=== PATIENT | female | born 1955 | race African-American/Black ===

== ENCOUNTER 2023-08-02 09:51 | Outpatient (AMB) | payer MEDICARE, OTHER, SELFPAY ==
--- NOTE | 2023-08-02 10:23 | HO.NEPHOV_ITS ---
HPI HPI Comments History of Present Illness Details I had the pleasure of seeing Samantha in follow-up of her chronic kidney disease. She has rheumatoid arthritis and takes prednisone and nonsteroidal anti-inflammatories intermittently. She is hypertensive but her blood pressure has been at goal. She has no orthostatic symptoms. When she was taking gabapentin, oxycodone and other NSAID's, she was having tremors which improved on cutting back on gabapentin. Lately she has been taking a lot of nonsteroidal anti-inflammatories. Her serum creatinine has gone up from baseline. She has a new diagnosis of pulmonary fibrosis. She denies chest pain, shortness of b reath, proximal nocturnal dyspnea, orthopnea, pedal edema or urinary symptoms. She takes torsemide, triamterene and hydrochlorothiazide combination as well. [facility] Medical History (Updated 08/02/23 @ 13:45 by Michael Jackson MD) SLE glomerulonephritis syndrome Osteoporosis Postherpetic neuralgia Osteoarthritis Obstructive sleep apnea Mood disorder Hyperlipidemia Migraine variant with headache Mass of left breast on mammogram Lumbar radiculopathy Hyperglycemia GERD (gastroesophageal reflux disease) Essential (primary) hypertension Chronic kidney disease Chronic constipation Cardiac murmur Bacterial pneumonia Surgical History (Updated 08/02/23 @ 10:36 by Anita Serrano MA) History of hysterectomy History of shoulder surgery Family History (Updated 08/02/23 @ 10:37 by Anita Serrano MA) Father Hypertension Social History (Updated 08/02/23 @ 10:37 by Anita Serrano MA) Alcohol intake: never Patient Tobacco Use Status: Never used Tobacco Vital Signs 08/02/23 10:25 Height 5 ft 1 in Weight 184 lb BMI 34.8 BP 110/80 Blood Pressure Location Lt brachial Position Sitting Pulse 77 Pulse Source Pulse Oximeter Physical Exam Vital Signs: Last Vital Signs Pulse 77 08/02/23 10:25 BP 110/80 08/02/23 10:25 BMI result Body Mass Index 34.8 Const Other: Rheumatoid deformities in small joints of her hands General: comfortable and no acute distress Orientation/consciousness: patient oriented x3 HEENT Head: Yes normocephalic Mouth: Normal oral and palatal mucosa present Eyes EOM: EOMs intact bilaterally Neck Neck: Yes supple Resp Auscultation: clear to auscultation bilaterally Cardio Jugular venous distension: no JVD Rate: regular rate GI Palpation (GI): Soft to palpation Auscultation: normal bowel sounds General: Yes no CVA tenderness Back/Spine/Pelvis Back: no CVA tenderness Skin General skin exam: no rashes or lesions noted Neuro General: patient oriented x3 and moves all extremities Extrem General: Yes no pedal edema Assessment & Plan Assessment & Plan (1) CKD (chronic kidney disease) stage 3, GFR 30-59 ml/min: Code(s): N18.30 - Chronic kidney disease, stage 3 unspecified (2) GRIS (acute kidney injury): Code(s): N17.9 - Acute kidney failure, unspecified (3) Hypertension: Code(s): I10 - Essential (primary) hypertension Qualifiers: Hypertension type: primary hypertension Qualified Code(s): I10 - Essen tial (primary) hypertension Plan Samantha has longstanding CKD stage 3 at baseline. She developed GRIS recently most likely due to altered autoregulation of the kidney, being on nonsteroidal anti- inflammatory medications along with ACEI and diuretics. I asked her to hold her lisinopril. She should maintain good hydration. She should cut back sodium in the diet. Her urine output is good. She is clinically not hypervolemic. I have ordered follow-up laboratory studies. She does not need any renal biopsy at this moment in time. Further management is pending involving data. All questions answered. Time spent for retrieval of data, documentation patient encounter 26 minutes. Follow-up given. Orders: Orders Calcium Today N18.30 - Chronic kidney disease, stage 3 unspecified Protein Creatinine Ratio, Ur Today N18.30 - Chronic kidney disease, stage 3 unspecified Complement C3 Today N18.30 - Chronic kidney disease, stage 3 unspecified Complement C4 Today N18.30 - Chronic kidney disease, stage 3 unspecified Electrolytes Today N18.30 - Chronic kidney disease, stage 3 unspecified Blood Urea Nitrogen Today N18.30 - Chronic kidney disease, stage 3 unspecified Creatinine Today N18.30 - Chronic kidney disease, stage 3 unspecified Complete Blood Count Auto Diff Today N18.30 - Chronic kidney disease, stage 3 unspecified Coding Level of Care Code Est Pt Level 4 (36210) Diagnoses CKD (chronic kidney disease) stage 3, GFR 30-59 ml/min N18.30 GRIS (acute kidney injury) N17.9 Primary hypertension I10 Hypertension type: primary hypertension
[2023-08-02 10:25] VITALS: BP 110/80; PULSE 77; BMI 34.8
== END 2023-08-02 11:01 | disposition home or self-care (01) ==
PROVIDERS: PCP Hospitalist; Visit Provider Internal Medicine Nephrology
DX: N18.30 Chronic kidney disease, stage 3 unspecified (principal); N17.9 Acute kidney failure, unspecified; I10 Essential (primary) hypertension
CPT/HCPCS: 99214

== ENCOUNTER → 2023-08-02 09:51 | Outpatient (BNVA) | payer MEDICARE, OTHER, SELFPAY | PROVIDERS: PCP Hospitalist; Visit Provider Internal Medicine Nephrology | DX: I12.9 Hypertensive chronic kidney disease with stage 1 through stage 4 chronic kidney disease, or unspecified chronic kidney disease (principal); N18.30 Chronic kidney disease, stage 3 unspecified; N17.9 Acute kidney failure, unspecified | CPT/HCPCS: 99212 ==

== ENCOUNTER 2023-11-24 13:09 | Outpatient (REF) | payer MEDICARE, OTHER, SELFPAY ==
[2023-11-24 17:24] LABS: MANUAL DIFF FLAG NO
[2023-11-24 17:29] LABS: Basophils Absolute Auto 0.1 X10*3/uL (0.0-0.2); Basophils Percent Auto 0.7 % (0-2); Eosinophils Absolute Auto 0.8 X10*3/uL (0.0-0.4); Eosinophils Percent Auto 7.4 % (0-4); Hematocrit 32.7 % (37.0-47.0); Hemoglobin 10.7 g/dl (12.0-16.0); Imm Gran Abs Auto 0.02 X10*3/uL (0.00-0.03); Imm Gran Pct Auto 0.2 % (0.0-0.4); Lymphocytes Absolute Auto 2.4 X10*3/uL (1.2-4.9); Lymphocytes Percent Auto 22.9 % (20-40); Mean Corpuscular HGB Conc 32.7 g/dl (31.0-35.0); Mean Corpuscular Hemoglobin 30.1 pg (27.0-33.0); Mean Corpuscular Volume 92.1 fL (80.0-98.0); Mean Platelet Volume 9.1 fL (9.4-12.3); Monocytes Absolute Auto 1.3 X10*3/uL (0.1-1.2); Monocytes Percent Auto 11.9 % (2-11); Neutrophils Percent Auto 56.9 % (45-73); Platelet Count 519 X10*3/uL (160-400); Red Blood Count 3.55 X10*6/uL (4.20-5.50); Red Cell Distribution Width 15.5 % (11.0-16.0); White Blood Count 10.5 X10*3/uL (4.8-10.8)
[2023-11-24 17:38] LABS: Anion Gap 13 (12-20); Blood Urea Nitrogen 25 mg/dL (9-16); Calcium 10.3 mg/dL (8.4-10.2); Carbon Dioxide 27 mmol/L (22-29); Chloride 104 mmol/L (96-108); Estimated Glomerular Filt Rate 36; Potassium 3.3 mmol/L (3.3-5.1); Sodium 141 mmol/L (135-145)
[2023-11-24 17:50] LABS: Creatinine Urine 119.12 mg/dL; Protein/Creatinine Ratio, Ur 0.08 (<0.2); Total Protein Urine Random 10 mg/dL (<12)
== END 2023-11-24 13:10 | disposition home or self-care (01) ==
LOC: HO.HKASLDS 13:09
PROVIDERS: Visit Provider Internal Medicine Nephrology
DX: N18.30 Chronic kidney disease, stage 3 unspecified (principal)
CPT/HCPCS: 36415; 80051; 82310; 82565; 82570; 84156; 84520; 85025; 86160

== ENCOUNTER 2023-12-01 09:40 | Outpatient (AMB) | payer MEDICARE, OTHER, SELFPAY ==
[2023-12-01 09:43] VITALS: BP 120/80; PULSE 94; O2SAT 95; BMI 29.9
--- NOTE | 2023-12-01 09:43 | HO.NEPHOV ---
HPI HPI Comments History of Present Illness Details I had the pleasure of seeing Samantha in follow-up of her chronic kidney disease. She has rheumatoid arthritis and takes prednisone and nonsteroidal anti-inflammatories intermittently. She is hypertensive but her blood pressure has been at goal. She has no orthostatic symptoms. When she was taking gabapentin, oxycodone and other NSAID's, she was having tremors which improved on cutting back on gabapentin. Lately she has been taking a lot of nonsteroidal anti-inflammatories. Her serum creatinine has improved and is close to baseline ( from 2.5 to 1.4 ). She has a new diagnosis of pulmonary fibrosis. She denies chest pain, shortness of breath, proximal nocturnal dyspnea, orthopnea, pedal edema or urinary symptoms. She takes torsemide, triamterene and hydrochlorothiazide combination as well. [facility] Medical History (Updated 12/01/23 @ 09:53 by Michael Jackson MD) SLE glomerulonephritis syndrome Osteoporosis Postherpetic neuralgia Osteoarthritis Obstructive sleep apnea Mood disorder Hyperlipidemia Migraine variant with headache Mass of left breast on mammogram Lumbar radiculopathy Hyperglycemia GERD (gastroesophageal reflux disease) Essential (primary) hypertension Chronic kidney disease Chronic constipation Cardiac murmur Bacterial pneumonia Surgical History History of hysterectomy History of shoulder surgery Family History Father Hypertension Social History Alcohol intake: never Patient Tobacco Use Status: Never used Tobacco Vital Signs 12/01/23 09:43 Height 5 ft 1 in Weight 158 lb 8 oz BMI 29.9 BP 120/80 Blood Pressure Location Lt brachial Position Sitting Pulse 94 Pulse Source Pulse Oximeter Pulse Oximetry (%) 95 Oxygen Delivery Method Room Air Physical Exam Vital Signs: Last Vital Signs Pulse 94 12/01/23 09:43 BP 140/90 H 12/01/23 09:43 Pulse Ox 95 12/01/23 09:43 Oxygen Delivery Method Room Air 12/01/23 09:43 BMI result Body Mass Index 29.9 Const General: comfortable and no acute distress Orientation/consciousness: patient oriented x3 HEENT Head: Yes normocephalic Mouth: Normal oral and palatal mucosa present Eyes EOM: EOMs intact bilaterally Neck Neck: Yes supple Resp Auscultation: clear to auscultation bilaterally Cardio Jugular venous distension: no JVD Rate: regular rate GI Palpation (GI): Soft to palpation Auscultation: normal bowel sounds General: Yes no CVA tenderness Back/Spine/Pelvis Back: no CVA tenderness Skin General skin exam: no rashes or lesions noted Neuro General: patient oriented x3 and moves all extremities Extrem General: Yes no pedal edema Assessment & Plan Assessment & Plan (1) CKD (chronic kidney disease) stage 3, GFR 30-59 ml/min: Code(s): N18.30 - Chronic kidney disease, stage 3 unspecified Qualifiers: Chronic kidney disease stage 3 subtype: stage 3a (GFR 45-59) Qualified Code(s): N18.31 - Chronic kidney disease, stage 3a (2) Hypertension: Code(s): I10 - Essential (primary) hypertension Qualifiers: Hypertension type: primary hypertension Qualified Code(s): I10 - Essential (primary) hypertension Plan Samantha has longstanding CKD stage 3 at baseline. She developed GRIS recently most likely due to altered autoregulation of the kidney, being on nonsteroidal anti-inflammatory medications along with ACEI and diuretics. Her renal function improved after holding lisinopril. She should maintain good hydration. She should cut back sodium in the diet. Her urine output is good. She is clinically not hypervolemic. She does not need any renal biopsy at this moment in time. Further management is pending involving data. All questions answered. Orders: Orders Calcium Today I10 - Essential (primary) hypertension, N18.30 - Chronic kidney disease, stage 3 unspecified Creatinine Today I10 - Essential (primary) hypertension, N18.30 - Chronic kidney disease, stage 3 unspecified Blood Urea Nitrogen Today I10 - Essential (primary) hypertension, N18.30 - Chronic kidney disease, stage 3 unspecified Electrolytes Today I10 - Essential (primary) hypertension, N18.30 - Chronic kidney disease, stage 3 unspecified Parathyroid Hormone Intact Today I10 - Essential (primary) hypertension, N18.30 - Chronic kidney disease, stage 3 unspecified Vitamin D 25-OH Total Today I10 - Essential (primary) hypertension, N18.30 - Chronic kidney disease, stage 3 unspecified IRON PROFILE Today I10 - Essential (primary) hypertension, N18.30 - Chronic kidney disease, stage 3 unspecified Coding Level of Care Code Est Pt Level 4 (69209) Diagnoses Stage 3a chronic kidney disease N18.31 Chronic kidney disease stage 3 subtype: stage 3a (GFR 45-59) Primary hypertension I10 Hypertension type: primary hypertension Results Reviewed Nephrology Results: Hgb 10.7 g/dl (12.0-16.0) L 11/24/23 WBC 10.5 X10*3/uL (4.8-10.8) 11/24/23 Plt Count 519 X10*3/uL (160-400) H 11/24/23 Sodium 141 mmol/L (135-145) 11/24/23 Potassium 3.3 mmol/L (3.3-5.1) 11/24/23 Chloride 104 mmol/L (96-108) 11/24/23 Carbon Dioxide 27 mmol/L (22-29) 11/24/23 BUN 25 mg/dL (9-16) H 11/24/23 Creatinine 1.43 mg/dL (0.5-1.4) H 11/24/23 Calcium 10.3 mg/dL (8.4-10.2) H 11/24/23 Urine Creatinine 119.12 mg/dL 11/24/23 Protein/Creatinin Ratio 0.08 (<0.2) 11/24/23
== END 2023-12-01 10:26 | disposition home or self-care (01) ==
LOC: HO.HKAS 09:40
PROVIDERS: PCP Hospitalist; Visit Provider Internal Medicine Nephrology
DX: N18.31 Chronic kidney disease, stage 3a (principal); I10 Essential (primary) hypertension
CPT/HCPCS: 99214

== ENCOUNTER → 2023-12-01 09:40 | Outpatient (BNVA) | payer MEDICARE, OTHER, SELFPAY | PROVIDERS: PCP Hospitalist; Visit Provider Internal Medicine Nephrology | DX: I12.9 Hypertensive chronic kidney disease with stage 1 through stage 4 chronic kidney disease, or unspecified chronic kidney disease (principal); N18.31 Chronic kidney disease, stage 3a | CPT/HCPCS: 99212 ==

== ENCOUNTER 2024-08-21 11:50 | Outpatient (AMB) | payer MEDICARE, OTHER, SELFPAY ==
--- NOTE | 2024-08-21 12:24 | HO.NEPHOV_ITS ---
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 She has rheumatoid arthritis and takes prednisone and nonsteroidal anti-inflammatories intermittently. She is hypertensive but her blood pressure has been at goal. She has no orthostatic symptoms. When she was taking gabapentin, oxycodone and other NSAID's, she was having tremors which improved on cutting back on gabapentin. Lately she has been taking a lot of nonsteroidal anti- inflammatories. Her serum creatinine had improved and is close to baseline ( from 2.5 to 1.4 ) but has not had blood work for some time. She has a new diagnosis of pulmonary fibrosis. She denies chest pain, shortness of breath, proximal nocturnal dyspnea, orthopnea, pedal edema or urinary symptoms. She feels well [facility] Medical History (Updated 12/01/23 @ 09:53 by Michael Jackson MD) SLE glomerulonephritis syndrome Osteoporosis Postherpetic neuralgia Osteoarthritis Obstructive sleep apnea Mood disorder Hyperlipidemia Migraine variant with headache Mass of left breast on mammogram Lumbar radiculopathy Hyperglycemia GERD (gastroesophageal reflux disease) Essential (primary) hypertension Chronic kidney disease Chronic constipation Cardiac murmur Bacterial pneumonia Surgical History History of hysterectomy History of shoulder surgery Family History Father Hypertension Social History Alcohol intake: never Patient Tobacco Use Status: Never used Tobacco Review of Systems Const All systems reviewed & are unremarkable except as noted in HPI and below Physical Exam Vital Signs: Last Vital Signs BP 128/80 08/21/24 12:26 BMI result Body Mass Index 25.4 Const General: comfortable and no acute distress Orientation/consciousness: patient oriented x3 HEENT Head: Yes normocephalic Mouth: Normal oral and palatal mucosa present Eyes EOM: EOMs intact bilaterally Neck Neck: Yes supple Resp Auscultation: clear to auscultation bilaterally Cardio Jugular venous distension: no JVD Rate: regular rate GI Palpation (GI): Soft to palpation Auscultation: normal bowel sounds General: Yes no CVA tenderness Back/Spine/Pelvis Back: no CVA tenderness Skin General skin exam: no rashes or lesions noted Neuro General: patient oriented x3 and moves all extremities Extrem General: Yes no pedal edema Results Reviewed Nephrology Results: Hgb 10.7 g/dl (12.0-16.0) L 11/24/23 WBC 10.5 X10*3/uL (4.8-10.8) 11/24/23 Plt Count 519 X10*3/uL (160-400) H 11/24/23 Sodium 141 mmol/L (135-145) 11/24/23 Potassium 3.3 mmol/L (3.3-5.1) 11/24/23 Chloride 104 mmol/L (96-108) 11/24/23 Carbon Dioxide 27 mmol/L (22-29) 11/24/23 BUN 25 mg/dL (9-16) H 11/24/23 Creatinine 1.43 mg/dL (0.5-1.4) H 11/24/23 Calcium 10.3 mg/dL (8.4-10.2) H 11/24/23 Urine Creatinine 119.12 mg/dL 11/24/23 Protein/Creatinin Ratio 0.08 (<0.2) 11/24/23 Assessment & Plan Assessment & Plan (1) CKD (chronic kidney disease) stage 3, GFR 30-59 ml/min: Code(s): N18.30 - Chronic kidney disease, stage 3 unspecified Category: Medical Qualifiers: Chronic kidney disease stage 3 subtype: stage 3a (GFR 45-59) Qualified Code(s): N18.31 - Chronic kidney disease, stage 3a (2) Hypertension: Code(s): I10 - Essential (primary) hypertension Category: Medical Qualifiers: Hypertension type: primary hypertension Qualified Code(s): I10 - Essential (primary) hypertension Plan Samantha has longstanding CKD stage 3 at baseline. She has H/O GRIS most likely due to altered autoregulation of the kidney, being on nonsteroidal anti-inflammatory medications along with ACEI and diuretics. Her renal function improved after holding lisinopril. She should maintain good hydration. She should cut back sodium in the diet. Her urine output is good. She is clinically not hypervolemic. She does not need any renal biopsy at this moment in time. Blood work ordered for follow up. No medication changes made today. Further management is pending involving data. All questions answered Orders: Orders Calcium Today I10 - Essential (primary) hypertension, N18.31 - Chronic kidney disease, stage 3a Uric Acid Today I10 - Essential (primary) hypertension, N18.31 - Chronic kidney disease, stage 3a Parathyroid Hormone Intact Today I10 - Essential (primary) hypertension, N18.31 - Chronic kidney disease, stage 3a Complete Blood Count Auto Diff Today I10 - Essential (primary) hypertension, N18.31 - Chronic kidney disease, stage 3a Blood Urea Nitrogen 4 Months I10 - Essential (primary) hypertension, N18.31 - Chronic kidney disease, stage 3a Creatinine Today I10 - Essential (primary) hypertension, N18.31 - Chronic kidney disease, stage 3a Blood Urea Nitrogen Today I10 - Essential (primary) hypertension, N18.31 - Chronic kidney disease, stage 3a Electrolytes Today I10 - Essential (primary) hypertension, N18.31 - Chronic kidney disease, stage 3a Vitamin D 25-OH Total Today I10 - Essential (primary) hypertension, N18.31 - Chronic kidney disease, stage 3a Creatinine 4 Months I10 - Essential (primary) hypertension, N18.31 - Chronic kidney disease, stage 3a Electrolytes 4 Months I10 - Essential (primary) hypertension, N18.31 - Chronic kidney disease, stage 3a Coding Level of Care Code Est Pt Level 4 (64614) Diagnoses Stage 3a chronic kidney disease N18.31 Chronic kidney disease stage 3 subtype: stage 3a (GFR 45-59) Primary hypertension I10 Hypertension type: primary hypertension
[2024-08-21 12:26] VITALS: BP 128/80; BMI 25.4
== END 2024-08-21 12:54 | disposition home or self-care (01) ==
PROVIDERS: PCP Hospitalist; Visit Provider Internal Medicine Nephrology
DX: N18.31 Chronic kidney disease, stage 3a (principal); I10 Essential (primary) hypertension
CPT/HCPCS: 99214

== ENCOUNTER → 2024-08-21 11:50 | Outpatient (BNVA) | payer MEDICARE, OTHER, SELFPAY | PROVIDERS: PCP Hospitalist; Visit Provider Internal Medicine Nephrology | DX: I12.9 Hypertensive chronic kidney disease with stage 1 through stage 4 chronic kidney disease, or unspecified chronic kidney disease (principal); N18.31 Chronic kidney disease, stage 3a | CPT/HCPCS: 99212 ==

== ENCOUNTER 2025-01-01 11:03 | Outpatient (AMB) | payer MEDICARE, OTHER, SELFPAY ==
--- NOTE | 2025-01-01 11:11 | HO.NEPHOV ---
Vital Signs 01/01/25 11:13 Height 5 ft 1 in Weight 138 lb BMI 26.1 BP 128/80 Blood Pressure Location Lt brachial Position Sitting Pulse 75 Pulse Source Pulse Oximeter Pulse Oximetry (%) 99 Oxygen Delivery Method Room Air Intake Visit Reasons: 4 mo follow up-Conf Radiology Manager Required: No Accompanied by: Self / Same As Patient Allergies No Known Allergies Allergy (Verified 01/01/25 11:13) HPI Comments Details: Samantha was seen in follow-up of her chronic kidney disease. She has rheumatoid arthritis and takes prednisone and nonsteroidal anti-inflammatories intermittently. She is hypertensive but her blood pressure has been at goal. She has high sodium diet. She has no orthostatic symptoms. When she was taking gabapentin, oxycodone and other NSAID's, she was having tremors which improved on cutting back on gabapentin. Lately she has been taking a lot of nonsteroidal anti-inflammatories. Her serum creatinine had improved to baseline . She has a new diagnosis of pulmonary fibrosis. She denies chest pain, shortness of breath, proximal nocturnal dyspnea, orthopnea, pedal edema or urinary symptoms. She feels well [facility] Medical History (Updated 12/01/23 @ 09:53 by Michael Jackson MD) SLE glomerulonephritis syndrome Osteoporosis Postherpetic neuralgia Osteoarthritis Obstructive sleep apnea Mood disorder Hyperlipidemia Migraine variant with headache Mass of left breast on mammogram Lumbar radiculopathy Hyperglycemia GERD (gastroesophageal reflux disease) Essential (primary) hypertension Chronic kidney disease Chronic constipation Cardiac murmur Bacterial pneumonia Surgical History History of hysterectomy History of shoulder surgery Family History Father Hypertension Social History Alcohol intake: never Patient Tobacco Use Status: Never used Tobacco Review of Systems Const All systems reviewed & are unremarkable except as noted in HPI and below Physical Exam Vital Signs: Last Vital Signs Pulse 75 01/01/25 11:13 BP 148/92 H 01/01/25 11:13 Pulse Ox 99 01/01/25 11:13 Oxygen Delivery Method Room Air 01/01/25 11:13 BMI result Body Mass Index 26.1 Const General: comfortable and no acute distress Orientation/consciousness: patient oriented x3 HEENT Head: Yes normocephalic Mouth: Normal oral and palatal mucosa present Eyes EOM: EOMs intact bilaterally Neck Neck: Yes supple Resp Auscultation: clear to auscultation bilaterally Cardio Jugular venous distension: no JVD Rate: regular rate GI Palpation (GI): Soft to palpation Auscultation: normal bowel sounds General: Yes no CVA tenderness Back/Spine/Pelvis Back: no CVA tenderness Skin General skin exam: no rashes or lesions noted Neuro General: patient oriented x3 and moves all extremities Assessment & Plan Assessment & Plan (1) CKD (chronic kidney disease) stage 3, GFR 30-59 ml/min: Code(s): N18.30 - Chronic kidney disease, stage 3 unspecified Category: Medical Qualifiers: Chronic kidney disease stage 3 subtype: stage 3a (GFR 45-59) Qualified Code(s): N18.31 - Chronic kidney disease, stage 3a (2) Hypertension: Code(s): I10 - Essential (primary) hypertension Category: Medical Qualifiers: Hypertension type: primary hypertension Qualified Code(s): I10 - Essential (primary) hypertension Plan Samantha has longstanding CKD stage 3 at baseline. Her renal function improved after holding lisinopril. She should maintain good hydration. She should cut back sodium in the diet. Her urine output is good. She does not need any renal biopsy at this moment in time. Blood work ordered for follow up. No medication changes made today. Further management is pending involving data. All questions answered Orders: Orders Blood Urea Nitrogen 4 Months I10 - Essential (primary) hypertension, N18.31 - Chronic kidney disease, stage 3a Calcium 4 Months I10 - Essential (primary) hypertension, N18.31 - Chronic kidney disease, stage 3a Creatinine 4 Months I10 - Essential (primary) hypertension, N18.31 - Chronic kidney disease, stage 3a Electrolytes 4 Months I10 - Essential (primary) hypertension, N18.31 - Chronic kidney disease, stage 3a Coding Level of Care Code Est Pt Level 4 (85150) Diagnoses Stage 3a chronic kidney disease N18.31 Chronic kidney disease stage 3 subtype: stage 3a (GFR 45-59) Primary hypertension I10 Hypertension type: primary hypertension
[2025-01-01 11:13] VITALS: BP 128/80; PULSE 75; O2SAT 99; BMI 26.1
--- OUTSIDE RECORDS SUMMARY | 2025-01-01 12:52 | XMS_ITS | Encounter Summary ---
Author Organization [facility] Address [address] [place] [address] Care Team Providers Care Senior Fire Protection Engineer Name Role Phone Jose A Clemons MD Primary Care Provider Unavail le Encounter Details Date Type Department Care Team Description 11/12/2022 Orders Only Medical Records [address] [place] [address] Grady Rosas PA-C [address] [place] [address] Social History Tobacco Use Types Packs/Day Years Used Date Smoking Tobacco: Never Smokeless Tobacco: Never Alcohol Use Standard Drinks/Week Comments No 0 (1 standard drink = 0.6 oz pur e alcohol) Alcohol Habits Answer Date Recorded How often do you have a drink containing alcohol ? Never 05/05/2020 How many drinks containing a lcohol do you have on a typical day when you are drinking? Not asked How often do you have six or more drinks on one occasion? Not asked Sex Assigned at Date Recorded Not on file COVID-19 Exposure Response Date Recorded In the last 10 days, have mattie hu been in contact with someone who was confirmed or suspected to have Coronavirus/COVID-19? No / Unsure 11/01/2022 10:01 AM EST documented as of this encounter Plan of Treatment Not on file documented as of this encounter Procedures Procedure Name Priority Date/Time Associated Diagnosis Comments OUTSIDE PLAIN FILM Routine 11/01/2022 documented in this encounter Results * OUTSIDE PLAIN FILM (11/01/2022) Grady Rosas PA-C RADIOLOGY documented in this encounter Visit Diagnoses Not on filedocumented in this encounter Care Teams Senior Fire Protection Engineer Relationship Specialty Start Date End Date Jose A Clemons MD PCP - General Internal Medicine 04/29/20 documented as of this encounter
--- OUTSIDE RECORDS SUMMARY | 2025-01-01 12:52 | XMS_ITS | Patient Health Record ---
Author Organization [employer]) Address [address] [place] [address] Care Team Providers Care Cover Marker Name Role Phone MESERET ALICIA Primary Care Provider Allergies No Known Allergies Results Component Value Reference Range Notes XR CHEST 2 VIEWS Reviewed date:12/26/2024 01:35:41 PM Interpretation: Performing Lab: Notes/Report: Note See Note [facility], a member of [employer] Patient Name: PER SANABRIA Date of : 1955 Reason for Exam: Cough, new onset Exam Date: 12/25/2024 [id number] EST Report Status: Final Ordering Provider: DIANA VERONICA PCP: MESERET ALICIA EXAM: Chest x-ray HISTORY: New onset cough. COMPARISON: 11/06/19 25, 07/05/2023, and 04/12/2023, chest CT 05/27/2023 and 06/04/2020 FINDINGS: PA and lateral views of the chest were performed. Chronic coarse opaci ties and lucencies in the lower lungs which correspond with pulmonary fibrosis on CT. Much milder reticular opacities in the upper lungs as before. No definite infiltrate. No significant pleural effusions or evidence of pulmonary edema. Heart is top normal in size. Mediastinal contours appear stable. Dextroscoliosis of the thoracolumbar spine with multilevel degenerative changes. Stable grade 2 spondylolisthesis at L4-5 and grade 1 spondylolisthesis at L3-4. Postsurgical changes of left shoulder arthroplasty. IMPRESSION: No definite evidence of an acute chest process. POS - [id number] -------- FINAL REPOR T -------- Dictated By: Shanna Tolbert Dictated Date: 12/26 08:06 ET Assigned Physician: Shanna Tolbert Reviewed and Electronically Signed By: Shanna Tolbert Signed Date: 025 08:18 ET Workstation ID: [id number] Transcribed By: Self Edit Transcribed Date: 12/26/2024 08:06 ET XR CHEST 2 VIEWS Reviewed date:11/05/2024 12:26:19 PM Interpretation: Performing Lab: Notes/Report: Note See Note [facility], a member of [employer] Patient Name: PER SANABRIA Date of : 1955 Reason for Exam: cough 1 month Exam Date: 11/05/2024 [id number] EST Report Status: Final Ordering Provider: DIANA URIOSTEGUI PCP: MESERET ALICIA EXAM: Chest x-ray HISTORY: Subacute cough. COMPARISON: 07/05/20 and 04/12/2023, chest CT 05/27/2023 and 06/04/2020 FINDINGS: PA and lateral views of the chest were performed. Chronic coarse opaci ties and cystic changes in the lower lungs which correspond with pulmonary fibrosis on CT. Much milder subpleural reticular opacities in the upper lungs as before. No definite infiltrate. No significant pleural effusions or evidence of pulmonary edema. Heart is top normal in size. Mediastinal contours appear stable. Dextroscoliosis of the thoracolumbar spine with multilevel degenerative changes. Chronic grade 2 spondylolisthesis at L4-5 and grade 1 spondylolisthesis at L3-4. Postsurgical changes of left shoulder arthroplasty. IMPRESSION: No definite evidence of an acute chest process. POS - [id number] -------- FINAL REPOR T -------- Dictated By: Shanna Tolbert Dictated Date: 11/05 11:46 ET Assigned Physician: Shanna Tolbert Reviewed and Electronically Signed By: Shanna Tolbert Signed Date: 025 11:59 ET Workstation ID: [id number] Transcribed By: Self Edit Transcribed Date: 11/05/2024 11:46 ET COMPREHENSIVE METABOLIC PANE L Reviewed date:10/23/2024 11:20:55 AM Interpretation: Performing Lab: Notes/Report: Sodium 137 133-145 mmol/L Potassium 3.4 3.5-5.5 mmol/L Chloride 100 96-110 mmol/L CO2 31 21-32 mmol/L Anion Gap 6 3-11 Glucose 72 70-100 mg/dL BUN 21 5-25 mg/dL Creatinine 1.48 0.50-1.10 mg/dL eGFR 38 >=60 mL/min/1.73m2 Calculation based on the Chronic Kidney Disease Epidemiology Collaboration (CKD-EPI) equation refit without adjustment for race. BUN/Creatinine Ratio 14.2 Calcium 10.7 8.5-10.5 mg/dL AST (SGOT) 16 10-42 unit/L ALT (SGPT) 13 10-60 unit/L Alkaline Phosphatase 80 42-121 unit/L Total Protein 6.5 6.0-8.0 g/dL Albumin 3.7 3.2-5.0 g/dL Total Bilirubin 0.4 0.0-1.4 mg/dL Reason For Referral Reason Evaluation and manag ement - upper endoscopy Diagnosis 1 Epigastric pain (R10 .13) Referral Organization [facility] Referring Provider First Name CARL Referring Provider Last Name [facility] Referring Provider Speciality Internal edicine Referred Provider Specialty Gastroentero logy General Notes Referral sent to [facility] GI - Dept will call patient for scheduling.Iron Latraya 02/14/2024 12:48:24 PM > Referral Priority Routine Reason Evaluation and manag ement Diagnosis 1 Pain in right should er (M25.511) Referral Organization [facility] Referring Provider First Name MESERET Referring Provider Last Name [facility] Referring Provider Speciality Internal edicine Referred Provider Specialty Physical The carlitoist General Notes Referral sent to [facility] in [place] - Office will call patient for scheduling.Iron Latraya 06/05/2024 03:31:33 PM > Referral Priority Routine Reason Please evaluate and treat; 2 times a week for 6 weeks Diagnosis 1 Radiculopathy, lumbo sacral region (M54.17) Referral Organization [facility] Referring Provider First Name MESERET Referring Provider Last Name [facility] Referring Provider Speciality Internal edicine Referred Provider Specialty Physical The rapist General Notes Referral faxed to [facility] in [place] per patient's request. Please contact the patient to schedule.Adri Kayla 09/13/2024 10:48:07 AM > Referral Priority Routine Medications Medication SIG (Take, Route, Frequency, Duration) Notes Start Date End Date Status predniSONE 10 MG 1 tablet Orally Once a day for 7 days 11/17/2023 Unknown Omeprazole 20 MG 1 capsule 30 minutes before morning meal Orally Once a day Unknown Triamterene-HCTZ 75-50 MG TAKE 1 TABLET BY MOUTH EVERY DAY IN THE MORNING FOR 90 DAYS for 90 Unknown Amitriptyline HCl 50 MG TAKE 1 TABLET BY MOUTH EVERYDAY AT BEDTIME for 90 days Unknown oxyCODONE HCl 10 MG 1 tablet as needed Orally daily for 28 days Partial Fill upon Patient Request 09/13/2024 Unknown Gabapentin 800 MG 1 capsule Orally 2 times a day for 30 days Unknown Atenolol 50 MG TAKE 1 TABLET BY MOUTH EVERY DAY for 90 Unknown Rosuvastatin Calcium 5 MG TAKE 1 TABLET BY MOUTH EVERY DAY FOR 90 DAYS for 90 Unknown HYDROcodone-Acetaminop hen 10-325 MG 1 tablet as needed Orally 2 TIMES A DAY for 14 days 06/05/2024 Unknown traMADol HCl 50 MG 1 tablet as needed Orally 3 times a day for 28 days 02/14/2024 Unknown oxyCODONE HCl 5 MG 1 tablet as needed Orally 8 hours for 10 days 02/21/2024 Unknown Immunizations Vaccine Route Administration Date Status Comme nts COVID Moderna Unknown 12/05/2020 Administered COVID Moderna Unknown 01/02/2021 Administered COVID Moderna Unknown 08/26/2021 Administered Flu High-Dose Unknown 06/16/2022 Administered Pneumococcal conjugate PCV 13 Unknown 05/23/2017 Admini stered Pneumococcal polysaccharide PPV23 Unknown 06/06/2015 Ad ministered Social History Tobacco Use: Social History Observation Description Date Details (start date - stop date) Never Smoker NA - NA Tobacco Use/Smoking Question Answer Notes Are you a nonsmoker Alcohol Screen (Audit-C) Question Answer Notes Did you have a drink containing alcohol in the p ast year? No Points 0 Interpretation Negative Problems Problem Type SNOMED Code ICD Code Onset Dates Problem Status W/U Status Risk Notes Problem Hyperparathyroidism (19099698) Hyperparathyroidis m, unspecified (E21.3) Active confirmed Problem Obesity due to exces s calories (169780097) Other obesity due to excess calories (E66.09) Active confirmed Problem Hypervitaminosis D (28525631) Hypervitaminosis D (E67.3) Active confirmed Problem Mixed hyperlipidemia (316579703) Mixed hyperlipidemia (E78.2) Active confirmed Problem Chronic migraine without aura, non-refractory (disorder) (549396551138605) Migraine without aura, not intractable, without status migrainosus (G43.009) Active confirmed Problem Obstructive sleep apnea syndrome (disorder) (87838575) Obstructive sleep apnea (adult) (pediatric) (G47.33) Active confirmed Problem Chronic respiratory failure (48539162) Chronic respiratory failure with hypoxia (J96.11) Active confirmed Problem Inflammatory polyarthropathy (857780838) Inflammatory polyarthropathy (M06.4) Active confirmed Problem Osteoarthritis (454145027) Polyosteoarthritis , unspecified (M15.9) Active confirmed Problem Lumbosacral radiculopathy (7507888) Radiculopathy, lumbosacral region (M54.17) Active confirmed Problem Age-related osteoporosis (583829026) Age-related osteoporosis without current pathological fracture (M81.0) Active confirmed Problem Chronic kidney disease stage 4 (828857713) Chronic kidney disease, stage 4 (severe) (N18.4) Active confirmed Problem Heart murmur (finding) (30582502) Cardiac murmur, unspecified (R01.1) Active confirmed Problem Essential hypertension (00272341) Essential (primary) hypertension (I10) Active confirmed Problem Diffuse interstitial pulmonary fibrosis (disorder) (708380536) Other interstitial pulmonary diseases with fibrosis in diseases classified elsewhere (J84.178) Active confirmed Problem Neck pain (75417230) Cervical pa in (neck) (M54.2) Active confirmed Problem Obstructive sleep apnea (71222243) Obstructive sleep apnea (G47.33) Active confirmed Vital Signs Heart Rate 86 /min 09/13/2024 Temperature 97.3 degrees Fahrenheit 09/13/2024 Oximetry 98 % 09/13/2024 Blood pressure diastolic 80 mm Hg 09/13/2024 Height 61.2 in 09/13/2024 Blood pressure systolic 120 mm Hg 09/13/2024 Weight 132.3 lbs 09/13/2024 BMI 24.83 kg/m2 09/13/2024 Encounters Encounter Location Date Provider Diagnosis [address] [address] 02/14/2024 CARL GUL Radiculopathy, lumbosacral region M54.17 ; Polyosteoarthritis, unspecified M15.9 ; Inflammatory polyarthropathy M06.4 and Epigastric pain R10.13 [facility] [address] [place] [address] 05/16/2024 [facility] [address] [place] [address] 06/05/2024 CARL GUL Pain in right should er M25.511 [facility] [address] [place] [address] 09/13/2024 MESERET ALICIA Encounter for genera l adult medical examination without abnormal findings Z00.00 ; Essential (primary) hypertension I10 ; Age-related osteoporosis without current pathological fracture M81.0 ; Mixed hyperlipidemia E78.2 ; Radiculopathy, lumbosacral region M54.17 ; Cardiac murmur, unspecified R01.1 ; Inflammatory polyarthropathy M06.4 ; Obstructive sleep apnea G47.33 and Chronic kidney disease, stage 4 (severe) N18.4 [facility] [address] [place] [address] 01/11/2024 [facility] [address] [place] [address] 02/02/2024 CARL GUL Inflammatory polyarthropathy M06.4 [facility] [address] [place] [address] 02/14/2024 [facility] [address] [place] [address] 02/21/2024 CARL GUL Inflammatory polyarthropathy M06.4 [facility] [address] [place] [address] 05/30/[address] [place] [address] 06/05/[address] [place] [address] 07/17/2024 CARL [facility] [address] [place] [address] 09/13/2024 CARL [facility] [address] [place] [address] 11/14/2024 CARL [facility] Assessments Encounter Date Diagnosis (ICD Code) Assessment Notes Treatment Notes Treatment Clinical Notes Section Notes 02/02/2024 Inflammatory polyarthropathy (ICD-10 - M06.4) 02/21/2024 Inflammatory polyarthropathy (ICD-10 - M06.4) 06/05/2024 Pain in right shoulder (ICD-10 - M25.511) Ms. Sanabria is a 68-year-old lady with migraine headaches, hypertension, hyperlipidemia, CKD stage [address] Jackson, osteoporosis and spinal stenosis with lumbar radiculopathy here complaining of right arm pain. She complains of consistent excruciating pain on her right arm. She is s/p left sided shoulder replacement done in [place] which is doing fine but she mentioned strenght is not good at this point and she is having a hard time holding things. She goes to physical therapy once very 3 months. Will plan on having her go to physical therapy on a weekly basis, which patient prefers to have for more efficient supervised exercises. Plan is as follows: Pain in right shoulder. Start Hydrocodone-Aceta minophen, 10-325 MG as needed BID for 14 days. Encouraged stretching exercises. She is going to see Dr. Carey General health concerns discussed with patient. Scribe services used to formulate this note under HIPAA compliance and under [place] law mandated for scribe services. Patient aware of service. Verbal consent and written consent taken from the patient. Patient understands and verbalizes understanding of the scribes services and all questions answered regarding scribes services. Patient agrees to use of scribes services. 02/14/2024 Polyosteoarthritis , unspecified (ICD-10 - M15.9) Ms. Sanabria is a 68-year-old lady with migraine headaches, hypertension, hyperlipidemia, CKD stage [address] Jackson, osteoporosis and spinal stenosis with lumbar radiculopathy here for follow up. She still complains of generalized body pain. Plan is as follows: Hypertension. Her blood pressure within reasonable limits. Cut back on sodium intake. Advised appropriate hydration, cardio exercises and weight loss. Continue current regimen. Inflammatory polyarthropathy. Continue Gabapentin 800 MG along with Tylenol Arthritis. She can take tramadol 50 MG as needed TID. Side effects of medications explained. She also see manager strategic development Dr. Garnica. She will sign a controlled substance contract. Polyosteoarthriti s/Radiculopathy. She recently saw pain management last 02/06/2024 for upper back and left shoulder pain. Patient reports benefit from her last injection. She was also seen by an orthopedic surgeon who has recommended surgery. Epigastric pain. Differential is dyspepsia/GERD. Referral to GI for upper endoscopy General health concerns discussed with patient. Scribe services used to formulate this note under HIPAA compliance and under [place] law mandated for scribe services. Patient aware of service. Verbal consent and written consent taken from the patient. Patient understands and verbalizes understanding of the scribes services and all questions answered regarding scribes services. Patient agrees to use of scribes services. 02/14/2024 Radiculopathy, lumbosacral region (ICD-10 - M54.17) Ms. Sanabria is a 68-year-old lady with migraine headaches, hypertension, hyperlipidemia, CKD stage [address] Jackson, osteoporosis and spinal stenosis with lumbar radiculopathy here for follow up. She still complains of generalized body pain. Plan is as follows: Hypertension. Her blood pressure within reasonable limits. Cut back on sodium intake. Advised appropriate hydration, cardio exercises and weight loss. Continue current regimen. Inflammatory polyarthropathy. Continue Gabapentin 800 MG along with Tylenol Arthritis. She can take tramadol 50 MG as needed TID. Side effects of medications explained. She also see manager strategic development Dr. Garnica. She will sign a controlled substance contract. Polyosteoarthriti s/Radiculopathy. She recently saw pain management last 02/06/2024 for upper back and left shoulder pain. Patient reports benefit from her last injection. She was also seen by an orthopedic surgeon who has recommended surgery. Epigastric pain. Differential is dyspepsia/GERD. Referral to GI for upper endoscopy General health concerns discussed with patient. Scribe services used to formulate this note under HIPAA compliance and under [place] law mandated for scribe services. Patient aware of service. Verbal consent and written consent taken from the patient. Patient understands and verbalizes understanding of the scribes services and all questions answered regarding scribes services. Patient agrees to use of scribes services. 09/13/2024 Encounter for general adult medical examination without abnormal findings (ICD-10 - Z00.00) Per is 69 years old lady with hypertension,acid reflux, inflammatory arthritis, osteoporosis, degenerative disc disease/osteoarth ritis is here for annual physical. Plan is as follows Hypertension. Blood pressure reasonably controlled on atenolol 50 mg 1 tablet daily along with Travatan/HCTZ 75/50 mg daily. Acid reflux. Continue on omeprazole 20 mg daily and dietary restrictions discussed Osteoporosis. We ordered bone density Inflammatory arthritis. She has seen Dr. Garnica in the past but she is not seeing him anymore. She is given a prescription for oxycodone 10 mg 1 tablet daily for breakthrough pain and meanwhile she can take Tylenol arthritis and we will increase gabapentin to 800 mg 1 tablet twice a day. Lumbar radiculopathy. She is currently going for physical therapy for upper back pain and we will give her a prescription for physical therapy for lower back pain. Chronic kidney disease stage IV. She follows up with Dr. Jackson Obstructive sleep apnea. She uses CPAP machine and she is stable and does not complain of daytime sleepiness. She is full code and her son Allyn Sanabria is her healthcare proxy. MOLST form discussed with patient Screening blood work ordered 09/13/2024 Essential (primary) hypertension (ICD-10 - I10) Per is 69 years old lady with hypertension,acid reflux, inflammatory arthritis, osteoporosis, degenerative disc disease/osteoarth ritis is here for annual physical. Plan is as follows Hypertension. Blood pressure reasonably controlled on atenolol 50 mg 1 tablet daily along with Travatan/HCTZ 75/50 mg daily. Acid reflux. Continue on omeprazole 20 mg daily and dietary restrictions discussed Osteoporosis. We ordered bone density Inflammatory arthritis. She has seen Dr. Garnica in the past but she is not seeing him anymore. She is given a prescription for oxycodone 10 mg 1 tablet daily for breakthrough pain and meanwhile she can take Tylenol arthritis and we will increase gabapentin to 800 mg 1 tablet twice a day. Lumbar radiculopathy. She is currently going for physical therapy for upper back pain and we will give her a prescription for physical therapy for lower back pain. Chronic kidney disease stage IV. She follows up with Dr. Jackson Obstructive sleep apnea. She uses CPAP machine and she is stable and does not complain of daytime sleepiness. She is full code and her son Allyn Sanabria is her healthcare proxy. MOLST form discussed with patient Screening blood work ordered 09/13/2024 Age-related osteoporosis without current pathological fracture (ICD-10 - M81.0) Per is 69 years old lady with hypertension,acid reflux, inflammatory arthritis, osteoporosis, degenerative disc disease/osteoarth ritis is here for annual physical. Plan is as follows Hypertension. Blood pressure reasonably controlled on atenolol 50 mg 1 tablet daily along with Travatan/HCTZ 75/50 mg daily. Acid reflux. Continue on omeprazole 20 mg daily and dietary restrictions discussed Osteoporosis. We ordered bone density Inflammatory arthritis. She has seen Dr. Garnica in the past but she is not seeing him anymore. She is given a prescription for oxycodone 10 mg 1 tablet daily for breakthrough pain and meanwhile she can take Tylenol arthritis and we will increase gabapentin to 800 mg 1 tablet twice a day. Lumbar radiculopathy. She is currently going for physical therapy for upper back pain and we will give her a prescription for physical therapy for lower back pain. Chronic kidney disease stage IV. She follows up with Dr. Manuel Nails sleep apnea. She uses CPAP machine and she is stable and does not complain of daytime sleepiness. She is full code and her son Allyn Sanabria is her healthcare proxy. MOLST form discussed with patient Screening blood work ordered 02/14/2024 Inflammatory polyarthropathy (ICD-10 - M06.4) Ms. Sanabria is a 68-year-old lady with migraine headaches, hypertension, hyperlipidemia, CKD stage [address] Jackson, osteoporosis and spinal stenosis with lumbar radiculopathy here for follow up. She still complains of generalized body pain. Plan is as follows: Hypertension. Her blood pressure within reasonable limits. Cut back on sodium intake. Advised appropriate hydration, cardio exercises and weight loss. Continue current regimen. Inflammatory polyarthropathy. Continue Gabapentin 800 MG along with Tylenol Arthritis. She can take tramadol 50 MG as needed TID. Side effects of medications explained. She also see manager strategic development Dr. Garnica. She will sign a controlled substance contract. Polyosteoarthriti s/Radiculopathy. She recently saw pain management last 02/06/2024 for upper back and left shoulder pain. Patient reports benefit from her last injection. She was also seen by an orthopedic surgeon who has recommended surgery. Epigastric pain. Differential is dyspepsia/GERD. Referral to GI for upper endoscopy General health concerns discussed with patient. Scribe services used to formulate this note under HIPAA compliance and under [place] law mandated for scribe services. Patient aware of service. Verbal consent and written consent taken from the patient. Patient understands and verbalizes understanding of the scribes services and all questions answered regarding scribes services. Patient agrees to use of scribes services. 02/14/2024 Epigastric pain (ICD-10 - R10.13) Ms. Sanabria is a 68-year-old lady with migraine headaches, hypertension, hyperlipidemia, CKD stage [address] Jackson, osteoporosis and spinal stenosis with lumbar radiculopathy here for follow up. She still complains of generalized body pain. Plan is as follows: Hypertension. Her blood pressure within reasonable limits. Cut back on sodium intake. Advised appropriate hydration, cardio exercises and weight loss. Continue current regimen. Inflammatory polyarthropathy. Continue Gabapentin 800 MG along with Tylenol Arthritis. She can take tramadol 50 MG as needed TID. Side effects of medications explained. She also see manager strategic development Dr. Garnica. She will sign a controlled substance contract. Polyosteoarthriti s/Radiculopathy. She recently saw pain management last 02/06/2024 for upper back and left shoulder pain. Patient reports benefit from her last injection. She was also seen by an orthopedic surgeon who has recommended surgery. Epigastric pain. Differential is dyspepsia/GERD. Referral to GI for upper endoscopy General health concerns discussed with patient. Scribe services used to formulate this note under HIPAA compliance and under [place] law mandated for scribe services. Patient aware of service. Verbal consent and written consent taken from the patient. Patient understands and verbalizes understanding of the scribes services and all questions answered regarding scribes services. Patient agrees to use of scribes services. 09/13/2024 Mixed hyperlipidemia (ICD-10 - E78.2) Per is 69 years old lady with hypertension,acid reflux, inflammatory arthritis, osteoporosis, degenerative disc disease/osteoarth ritis is here for annual physical. Plan is as follows Hypertension. Blood pressure reasonably controlled on atenolol 50 mg 1 tablet daily along with Travatan/HCTZ 75/50 mg daily. Acid reflux. Continue on omeprazole 20 mg daily and dietary restrictions discussed Osteoporosis. We ordered bone density Inflammatory arthritis. She has seen Dr. Garnica in the past but she is not seeing him anymore. She is given a prescription for oxycodone 10 mg 1 tablet daily for breakthrough pain and meanwhile she can take Tylenol arthritis and we will increase gabapentin to 800 mg 1 tablet twice a day. Lumbar radiculopathy. She is currently going for physical therapy for upper back pain and we will give her a prescription for physical therapy for lower back pain. Chronic kidney disease stage IV. She follows up with Dr. Manuel Nails sleep apnea. She uses CPAP machine and she is stable and does not complain of daytime sleepiness. She is full code and her son Allyn Sanabria is her healthcare proxy. MOLST form discussed with patient Screening blood work ordered 09/13/2024 Radiculopathy, lumbosacral region (ICD-10 - M54.17) Per is 69 years old lady with hypertension,acid reflux, inflammatory arthritis, osteoporosis, degenerative disc disease/osteoarth ritis is here for annual physical. Plan is as follows Hypertension. Blood pressure reasonably controlled on atenolol 50 mg 1 tablet daily along with Travatan/HCTZ 75/50 mg daily. Acid reflux. Continue on omeprazole 20 mg daily and dietary restrictions discussed Osteoporosis. We ordered bone density Inflammatory arthritis. She has seen Dr. Garnica in the past but she is not seeing him anymore. She is given a prescription for oxycodone 10 mg 1 tablet daily for breakthrough pain and meanwhile she can take Tylenol arthritis and we will increase gabapentin to 800 mg 1 tablet twice a day. Lumbar radiculopathy. She is currently going for physical therapy for upper back pain and we will give her a prescription for physical therapy for lower back pain. Chronic kidney disease stage IV. She follows up with Dr. Manuel Nails sleep apnea. She uses CPAP machine and she is stable and does not complain of daytime sleepiness. She is full code and her son Allyn Sanabria is her healthcare proxy. MOLST form discussed with patient Screening blood work ordered 09/13/2024 Cardiac murmur, unspecified (ICD-10 - R01.1) Per is 69 years old lady with hypertension,acid reflux, inflammatory arthritis, osteoporosis, degenerative disc disease/osteoarth ritis is here for annual physical. Plan is as follows Hypertension. Blood pressure reasonably controlled on atenolol 50 mg 1 tablet daily along with Travatan/HCTZ 75/50 mg daily. Acid reflux. Continue on omeprazole 20 mg daily and dietary restrictions discussed Osteoporosis. We ordered bone density Inflammatory arthritis. She has seen Dr. Garnica in the past but she is not seeing him anymore. She is given a prescription for oxycodone 10 mg 1 tablet daily for breakthrough pain and meanwhile she can take Tylenol arthritis and we will increase gabapentin to 800 mg 1 tablet twice a day. Lumbar radiculopathy. She is currently going for physical therapy for upper back pain and we will give her a prescription for physical therapy for lower back pain. Chronic kidney disease stage IV. She follows up with Dr. Jackson Obstructive sleep apnea. She uses CPAP machine and she is stable and does not complain of daytime sleepiness. She is full code and her son Allyn Sanabria is her healthcare proxy. MOLST form discussed with patient Screening blood work ordered 09/13/2024 Inflammatory polyarthropathy (ICD-10 - M06.4) Per is 69 years old lady with hypertension,acid reflux, inflammatory arthritis, osteoporosis, degenerative disc disease/osteoarth ritis is here for annual physical. Plan is as follows Hypertension. Blood pressure reasonably controlled on atenolol 50 mg 1 tablet daily along with Travatan/HCTZ 75/50 mg daily. Acid reflux. Continue on omeprazole 20 mg daily and dietary restrictions discussed Osteoporosis. We ordered bone density Inflammatory arthritis. She has seen Dr. Garnica in the past but she is not seeing him anymore. She is given a prescription for oxycodone 10 mg 1 tablet daily for breakthrough pain and meanwhile she can take Tylenol arthritis and we will increase gabapentin to 800 mg 1 tablet twice a day. Lumbar radiculopathy. She is currently going for physical therapy for upper back pain and we will give her a prescription for physical therapy for lower back pain. Chronic kidney disease stage IV. She follows up with Dr. Jackson Obstructive sleep apnea. She uses CPAP machine and she is stable and does not complain of daytime sleepiness. She is full code and her son Allyn Sanabria is her healthcare proxy. MOLST form discussed with patient Screening blood work ordered 09/13/2024 Obstructive sleep apnea (ICD-10 - G47.33) Per is 69 years old lady with hypertension,acid reflux, inflammatory arthritis, osteoporosis, degenerative disc disease/osteoarth ritis is here for annual physical. Plan is as follows Hypertension. Blood pressure reasonably controlled on atenolol 50 mg 1 tablet daily along with Travatan/HCTZ 75/50 mg daily. Acid reflux. Continue on omeprazole 20 mg daily and dietary restrictions discussed Osteoporosis. We ordered bone density Inflammatory arthritis. She has seen Dr. Garnica in the past but she is not seeing him anymore. She is given a prescription for oxycodone 10 mg 1 tablet daily for breakthrough pain and meanwhile she can take Tylenol arthritis and we will increase gabapentin to 800 mg 1 tablet twice a day. Lumbar radiculopathy. She is currently going for physical therapy for upper back pain and we will give her a prescription for physical therapy for lower back pain. Chronic kidney disease stage IV. She follows up with Dr. Jackson Obstructive sleep apnea. She uses CPAP machine and she is stable and does not complain of daytime sleepiness. She is full code and her son Allyn Sanabria is her healthcare proxy. MOLST form discussed with patient Screening blood work ordered 09/13/2024 Chronic kidney disease, stage 4 (severe) (ICD-10 - N18.4) Per is 69 years old lady with hypertension,acid reflux, inflammatory arthritis, osteoporosis, degenerative disc disease/osteoarth ritis is here for annual physical. Plan is as follows Hypertension. Blood pressure reasonably controlled on atenolol 50 mg 1 tablet daily along with Travatan/HCTZ 75/50 mg daily. Acid reflux. Continue on omeprazole 20 mg daily and dietary restrictions discussed Osteoporosis. We ordered bone density Inflammatory arthritis. She has seen Dr. Garnica in the past but she is not seeing him anymore. She is given a prescription for oxycodone 10 mg 1 tablet daily for breakthrough pain and meanwhile she can take Tylenol arthritis and we will increase gabapentin to 800 mg 1 tablet twice a day. Lumbar radiculopathy. She is currently going for physical therapy for upper back pain and we will give her a prescription for physical therapy for lower back pain. Chronic kidney disease stage IV. She follows up with Dr. Jackson Obstructive sleep apnea. She uses CPAP machine and she is stable and does not complain of daytime sleepiness. She is full code and her son Allyn Sanabria is her healthcare proxy. MOLST form discussed with patient Screening blood work ordered Plan Of Treatment Pending Test Test Name Order Date Bone Density 09/13/2024 COMPREHENSIVE METABOLIC PANEL 04/28/2022 COMPREHENSIVE METABOLIC PANEL 07/06/2022 HEMOGLOBIN A1C WITH EST GLUCOSE 07/06/20 22 LIPID PANEL 07/06/2022 PTH, INTACT 07/06/2022 TSH WITH REFLEX TO FT4 07/06/2022 Mammo: Diagnostic Mammogram Bilateral Future Test Test Name Order Date Albumin/Creatinine Ratio,[id number] Lipid Panel-[id number] 09/13/2024 Comp. Metabolic Panel [id number] 2024 Insurance Providers Payer Name Payer Address Payer Phone Subscriber Number Group Number Insured Name Patient Relationship to Insured Coverage Start Date Coverage End Date Medicare [address] [facility] [place] [phone] [id number] Per Sanabria Self - patient is the insured 3 [employer] [address] [place] [phone] [id number] Per Sanabria Self - patient is the insured 0 Medical (General) History Medical History History ICD Code migraine headaches hypertension hyperglycemia Osteoarthritis Inflammatory polyarthropathy, SLE ruled out sees Rheumatology Dr Garnica Spinal stenosis/lumbar radiculopathy Left breast mass Status post bilateral pneumonia and lung collapse in 2014 DANISHA obesity Osteopenia mild cataracts pulmonary fibrosis impaired fasting glucose Surgical History Surgery Date(Month/Year) left shoulder replacement hysterectomy breast reduction surgery by Dr. Fatuma Walls, [facility] 02/2022 Hospitalization History Reason Date(Month/Year) surgery prolonged hospitalization after breast reduction surgery Lupus
--- OUTSIDE RECORDS SUMMARY | 2025-01-01 12:52 | XMS_ITS | Encounter Summary ---
Author Organization [facility] Address [address] [facility] [address] [facility] [address] [place] [address] Phone Care Team Providers Care Wash Crew Person Name Role Phone Jose A Clemons MD Primary Care Provider [phone] Encounter Details Date Type Department Care Team (Late st Contact Info) Description 01/10/2023 Telephone [facility] [address] [facility] [address] [place] [address] Sheryl Nevarez Social History Tobacco Use Types Packs/Day Years Used Date Smoking Tobacco: Never Smokeless Tobacco: Never Alcohol Use Standard Drinks/Week Comments Never 0 (1 standard drink = 0.6 oz pur e alcohol) Comments Unknown Sex and Gender Information Value Date Recorded Sex Assigned at Not on file Legal Sex Female 4:43 PM EST Gender Identity Not on file Sexual Orientation Not on file documented as of this encounter Miscellaneous Notes * Telephone Encounter - Sheryl Nevarez - 01/10/2023 2:32 PM EDT PT called with concerns to relay, PT says she has been experiencing swelling on both ankles and feet for a period of two days now. She says she is having trouble putting her shoes on. Please advise. documented in this encounter Plan of Treatment Not on file documented as of this encounter Visit Diagnoses Not on filedocumented in this encounter Care Teams Wash Crew Person Relationship Specialty Start Date End Date Jose A Clemons MD [address] [place] [address] PCP - General Internal Medicine 10/24/20 documented as of this encounter
--- OUTSIDE RECORDS SUMMARY | 2025-01-01 12:52 | XMS_ITS | Encounter Summary ---
Author Organization [facility] Address [address] [place] [address] Phone Care Team Providers Care Millwork Estimator Name Role Phone Jose A Clemons MD Primary Care Provider [phone] Encounter Details Date Type Department Care Team (Late st Contact Info) Description 09/27/2022 Telephone [facility] [address] [place] [address] Sheryl Nevarez Social History Tobacco [...] * Telephone Encounter - Sheryl Nevarez - 09/27/2022 3:17 PM EST This Pt called to schedule a three month FU from her 09/27/22 appointment. I was only able to accessappointments in January, please advise. documented in this encounter Plan of Treatment Not on file documented as of this encounter Visit Diagnoses Not on filedocumented in this encounter Care Teams Millwork Estimator Relationship Specialty Start Date End Date Jose A Clemons MD [address] [place] [phone] PCP - General Internal Medicine 10/24/20 documented as of this encounter
--- OUTSIDE RECORDS SUMMARY | 2025-01-01 12:53 | XMS_ITS | Encounter Summary ---
Author Organization [facility] Address [address] [place] [address] Care Team Providers Care Air Grinder Name Role Phone Jose A Clemons MD Primary Care Provider Unavailab le Reason for Visit * Reason Onset Date Comments Follow-up Appt Unavailable 12/11/2022 Encounter Details Date Type Department Care Team Description 12/11/2022 Telephone Pulmonology - [place] [address] [facility] [address] [place] [address] Neena Calles APRN [address] [facility] [address] [place] [address] Follow-up Appt Unavailable Social History Tobacco Use Types Packs/Day Years [...] Recorded In the last 10 days, have yo u been in contact with someone who was confirmed or suspected to have Coronavirus/COVID-19? No / Unsure 12/10/2022 10:18 AM EDT documented as of this encounter Plan of Treatment Not on file documented as of this encounter Visit Diagnoses Not on filedocumented in this encounter Care Teams Air Grinder Relationship Specialty Start Date End Date Jose A Clemons MD PCP - General Internal Medicine 8/25/20 documented as of this encounter
--- OUTSIDE RECORDS SUMMARY | 2025-01-01 12:53 | XMS_ITS | Encounter Summary ---
Author Organization [facility] Address [address] [place] [address] Care Team Providers Care Apple Packing Header Name Role Phone Jose A Clemons MD Primary Care Provider Unavailab le Encounter Details Date Type Department Care Team Description 10/15/2020 Telephone Pulmonology - [place] [address] [facility] [address] [place] [address] Neena Calles APRN [address] [facility] [address] [place] [address] Social History Tobacco Use Types Packs/Day Years [...] Assigned at Date Recorded Not on file documented as of this encounter Plan of Treatment Not on file documented as of this encounter Visit Diagnoses Not on filedocumented in this encounter Care Teams Apple Packing Header Relationship Specialty Start Date End Date Jose A Clemons MD PCP - General Internal Medicine 04/29/20 documented as of this encounter
--- OUTSIDE RECORDS SUMMARY | 2025-01-01 12:53 | XMS_ITS | Encounter Summary ---
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
--- OUTSIDE RECORDS SUMMARY | 2025-01-01 12:53 | XMS_ITS | Clinical Summary ---
Author Organization [address] [facility] Address [address] [place] [address] Phone Care Team Providers Care Artificial Flowers Supervisor Name Role Phone Jose A Alicia MD Primary Care Provider [phone] Allergies No known active allergies Medications flu vacc [id number] up,/PF (FLUZONE HIGHDOSE QUAD 20-21 PF IM) PHARMACY ADMINISTERED 0 Active ibuprofen (ADVIL,MOTRIN) 600 mg tablet ibuprofen 600 mg tablet TAKE 1 TABLET BY MOUTH 4 TIMES A DAY NEEDED FOR PAIN Active amitriptyline (ELAVIL) 50 mg tablet 2 Active atenoloL (TENORMIN) 50 mg tablet Take 1 Tab by mouth daily. 0 Active cholecalcifero l (VITAMIN D-3) 50 mcg (2,000 unit) capsule Take 1 Cap by mouth 2 times daily. 0 Active gabapentin (NEURONTIN) 800 mg tablet Take 1 Tab by mouth 3 times daily. 0 Active nintedanib (Ofev) 150 mg capsule Take 1 Capsule by mouth 2 times daily. 4 Active omeprazole (PriLOSEC) [address] capsule 1 Active rosuvastatin (CRESTOR) 5 mg tablet Take 1 Tab by mouth daily. 0 Active triamterene-hy droCHLOROthiaz erica (MAXZIDE) 75-50 mg per tablet TAKE 1 TABLET BY MOUTH EVERY DAY IN THE MORNING FOR 90 DAYS Active albuterol HFA (PROAIR HFA ; PROVENTIL HFA ; VENTOLIN HFA) 90 mcg/actuation inhaler Inhale 2 puffs by mouth every 6 (six) hours if needed for wheezing. 18 g 5 Active benzonatate (TESSALON) 100 mg capsule Take 1 capsule (100 mg total) by mouth 3 (three) times a day if needed for cough for up to 7 days. Do not crush or chew. 21 capsule 5 12/25/19 25 predniSONE (DELTASONE) 20 mg tablet Take 1 tablet (20 mg total) by mouth 2 (two) times a day for 5 days. 10 each 5 12/23/19 25 nirmatrelvir-r itonavir (Paxlovid) 300 mg (150 mg x 2)-100 mg tablet therapy pack Take 3 tablets by mouth every 12 (twelve) hours for 5 days. Take number of ordered nirmatrelvir (300 mg = 2 tablets) and ritonavir (100 mg = 1 tablet) tablets at the same time. 30 tablet 5 12/23/19 25 azithromycin (ZITHROMAX) 250 mg tablet Take 2 tablets (500 mg total) by mouth 1 (one) time each day for 1 day, THEN 1 tablet (250 mg total) 1 (one) time each day for 4 days. 6 each 5 12/31/19 25 predniSONE (DELTASONE) 20 mg tablet Take 1 tablet (20 mg total) by mouth 2 (two) times a day for 5 days. 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 Anemia 08/26/2020 Anxiety 08/26/2020 Chronic constipation 08/26/2020 Overview (07/27/2024): Prolapsed bowel 2008 Fibromyalgia 08/26/2020 GERD (gastroesophageal reflux disease) 0 Overview (07/27/2024): H/o PUD Migraine 08/26/2020 DANISHA (obstructive sleep apnea) 08/26/2020 Overview (07/27/2024): [facility] Home Sleep Apnea Test: Date ; AHI 7; average oxygen saturation 90% (lowest 60% with saturations <88% for 5% or more of study) - Obstructive Sleep Apnea - mild; with sleep related hypoventilation by 2022 home sleep apnea test. Last Assessment & Plan: DME: [employer] CPAP 6-16cm Mood insomnia ([facility] V24) 08/26/2020 Osteoporosis 08/26/2020 Pancreatitis 08/26/2020 Overview (07/27/2024): 2011 Post herpetic neuralgia 08/26/2020 Overview (07/27/2024): Blade 2016 Prediabetes 08/26/2020 Pulmonary fibrosis ([facility] V24, [facility] V28) Vitamin D deficiency 08/26/2020 Pneumonia 09/05/2014 Overview (07/27/2024): 2015 bilateral with lung collapse Encounters Date Type Department Care Team Description 12/25/2024 6:11 PM EDT - 12/25/2024 11:59 PM EDT [facility] [address] [place] [phone] Discharge Disposition: Home or Self Care 12/25/2024 5:45 PM EDT Office Visit [facility] [address] [place] [phone] Denny Dale MD Acute cough (Primary Dx); COVID; Pneumonitis 12/20/2024 Telephone Walk-In [address] [phone] Jose A Alicia MD Medication Problem 12/17/2024 4:15 PM EDT Office Visit Walk-In [address] [phone] Grady Rosas PA COVID (Primary Dx) [facility] [address] [phone] Neena Calles NP [facility] [address] [phone] Neena Calles NP 11/05/2024 11:24 AM EST - 11/05/2024 11:59 PM EST Hospital Encounter Xray [address] [address] Subacute cough Discharge Disposition: Home or Self Care 11/05/2024 11:00 AM EST Office Visit Walk-In [address] [phone] Denny Hernandez NP Symptoms of upper respiratory infection (URI) (Primary Dx); Subacute cough 10/16/2024 4:30 PM EST Office Visit Walk-In [facility] [address] [place] [address] Leidy Ritchie NP Acute non-recurrent maxillary sinusitis (Primary Dx); Upper respiratory tract infection, unspecified type [facility] [address] [phone] Shantelle Rothman MA DME request from Last 3 Months Surgical History Surgery Date Site/Laterality Comments OTHER SURGICAL HISTORY 06/04/2015 Left PROCEDURE: OR ARTHROPLASTY GLENOHUMERAL JOINT TOTAL SHOULDER; COMMENT: Total Shoulder Arthroplasty HYSTERECTOMY 2001 PROCEDURE: HISTORICAL HYSTERECTOMY; COMMENT: partial, but ovaries intact. COLONOSCOPY 08/21/2012 PROCEDURE: HISTORICAL COLONOSCOPY; COMMENT: w/ biopsy. No report UPPER GASTROINTESTINAL ENDOSCOPY 08/14/2012 PROCEDURE: OR UPPER GI ENDOSCOPY PERFORMED UPPER GASTROINTESTINAL ENDOSCOPY 07/21/2010 PROCEDURE: OR UPPER GI ENDOSCOPY PERFORMED BREAST REDUCTION 02/15/2022 Bilateral PROCEDURE: OR BREAST REDUCTION; COMMENT: [facility] with Dr. Fatuma Walls Medical History Medical History Date Comments HTN (hypertension) DX:HTN (hyper tension) Lupus (systemic lupus erythe matosus) ([facility] V24, [facility] V28) DX:Lupus (systemic lupus erythematosus) ([facility]); COMMENT: Dr. Moses Spinal stenosis DX:Spinal stenos is Vitamin D deficiency 08/26/2020 DX:Vitamin D deficiency Mood insomnia ([facility] V24) 08/26/2020 DX:M ood insomnia ([facility]) Status post total shoulder arthroplasty, left 08/26/2020 DX:Status post total shoulde r arthroplasty, left Pneumonia 09/05/2014 DX:Pneumonia; CO MMENT: 2015 bilateral with lung collapse Pulmonary fibrosis ([facility] V24, [facility] V28) 08/26/2020 DX:Pulmonary fibrosis ([facility]) Osteoporosis 08/26/2020 DX:Osteoporosis Migraine 08/26/2020 DX:Migraine Pancreatitis 08/26/2020 DX:Pancreatitis; COMMENT: 2010 Anemia 08/26/2020 DX:Anemia Osteoarthritis DX:Osteoarthriti s; COMMENT: Lumbar spine Chronic constipation 08/26/2020 DX:Chronic constipation Anxiety 08/26/2020 DX:Anxiety GERD (gastroesophageal reflux disease) 0 DX:GERD (gastroesophageal reflux disease); COMMENT: H/o PUD DANISHA (obstructive sleep apnea) 08/26/2020 DX :DANISHA (obstructive sleep apnea); COMMENT: Does not use CPAP Refusal of blood transfusion s as patient is Congregational 08/26/2020 DX:Refusal of blood trans fusions as patient is Congregational Prediabetes 08/26/2020 DX:Prediabetes Fibromyalgia 08/26/2020 DX:Fibromyalgia Post herpetic neuralgia 08/26/2020 DX:Post herpetic neuralgia; COMMENT: Blade 2016 Cardiomegaly 08/27/2020 DX:Cardiomegaly Substance use 08/27/2020 DX:Substance use ; COMMENT: 11/14/2019 note lists opiate use. PUD (peptic ulcer disease) 08/27/2020 DX:PU D (peptic ulcer disease) Family History Medical History Relation Name Comments Other: AIDS Brother Coronary artery disease Father CABG , Hypertension, Hyperlipidemia, bullous phemphagoid Rheum arthritis Maternal Grandfather Other cancer Maternal Grandmother Heart failure Mother Arthritis Other: sarcodosis Sister Relation Name Status Comments Brother Father Maternal Grandfather Maternal Grandmother Mother Paternal Grandfather Alive Paternal Grandmother Alive Sister Alive Social History Tobacco Use Types Packs/Day Years Used Date Smoking Tobacco: Never Smokeless Tobacco: Never Tobacco Cessation:Counseling Given: Not Answered Alcohol Use Standard Drinks/Week Comments No 0 (1 standard drink = 0.6 oz pur e alcohol) Comments Unknown Sex and Gender Information Value Date Recorded Sex Assigned at Not on file Legal Sex Female 1:09 AM EST Gender Identity Not on file Sexual Orientation Not on file Obstetrics History Last Filed Vital Signs Vital Sign Reading Time Taken Comments Blood Pressure 114/72 12/25/2024 5:49 PM EDT Pulse 88 12/25/2024 5:49 PM EDT Temperature 36.4 ??C (97.5 ??F) 12/25/2024 5:49 PM ED T Respiratory Rate 20 12/17/2024 4:19 PM EDT Oxygen Saturation 95% 12/25/2024 5:49 PM EDT Inhaled Oxygen Concentration - - Weight 60.4 kg (133 lb 3.2 oz) 09/28/2024 9:15 A M EST Height 154.9 cm (5' 1 ) 09/28/2024 9:15 AM EST Body Mass Index 25.17 09/28/2024 9:15 AM EST Plan of Treatment Upcoming Encounters Date Type Department Care Team (Late st Contact Info) Description 02/19/2025 9:20 AM EDT Office Visit [facility] 175 [facility] [address] [place] [address] Neena Calles NP 175 [facility] [address] [place] [address] Health Maintenance Due Date Last Done Comments Diabetes: Annual Foot Exam 1964 Diabetes: Annual Retina Eye Exam 1964 DTaP,Tdap,and Td Vaccines (1 - Tdap) 1973 Hepatitis A Vaccines (1 of 2 - Risk 2-dose series) 1973 Zoster Vaccines (1 of 2) 2004 RSV Immunization Adult Patients (1 - Risk 60-74 years 1-dose series) 2014 Hepatitis B Vaccines (3 of 3 - Risk 3-dose series) 03/07/2019 01/10/2019, 04/12/2018 Pneumococcal Vaccine: 50+ Years (3 of 3 - PCV20 or PCV21) 05/23/2022 05/23/2017, 06/06/2015 Colorectal Cancer Screening: Colonoscopy 08/14/2022 Depression Screening 08/14/2022 Falls Risk Assessment 08/14/2022 Osteoporosis Screening (Bone Density Screening) 08/14/2022 Social Influencers of Health Screening 08/14/2022 Breast Cancer Screening 01/26/2023 01/26/2021, 04/13 Medicare Annual Wellness Visit 12/02/2023 12/01/2022 COVID-19 Vaccine ( season) 2024 08/26/2021, 01/02/2021, 12/05/2020, Additional history exists Diabetes: Annual Urine Albumin-Creatinine Ratio (uACR) 09/29/2024 Diabetes: Blood Sugar Control Test (HGBA1C) 09/29/2024 11/15/2019 Cholesterol Screening (Lipid Panel) 11/14/2024 11/15/2019 Diabetes: Annual GFR (Glomerular Filtration Rate) 09/28/2025 09/28/2024, 06/15/2024, 06/15/2024, Additional history exists Hypertension/CHF/CAD Annual BMP Blood Test 09/28/2025 09/28/2024, 06/15/2024, 06/15/2024, Additional history exists Hepatitis C Screening Completed 08/08/2016 Influenza Vaccine Completed 09/14/2024, , 09/02/2021, Additional history exists HIB Vaccines Aged Out No longer eligi ble based on patient's age to complete this topic HPV Vaccines Aged Out No longer eligi ble based on patient's age to complete this topic IPV Vaccines Aged Out No longer eligi ble based on patient's age to complete this topic MMR Vaccines Aged Out No longer eligi ble based on patient's age to complete this topic Meningococcal ACWY Vaccine Aged Out N o longer eligible based on patient's age to complete this topic Meningococcal B Vaccine Aged Out No l onger eligible based on patient's age to complete this topic RSV Immunization Patients Under 20 months Aged Out No longer eligible based on patient's age to complete this topic Varicella Vaccines Aged Out No longer eligible based on patient's age to complete this topic Procedures Procedure Name Priority Date/Time Associated Diagnosis Comments XR CHEST 2 VIEWS STAT 12/25/2024 6:16 PM EDT Acute cough POC RAPID INFLUENZA A&B, MOLECULAR Routine 12/17/2024 4:39 PM EDT COVID POC RAPID [id number], MOLECULAR Routine 12/17/2024 4:39 PM EDT COVID XR CHEST 2 VIEWS STAT 11/05/2024 11:4 4 AM EST Subacute cough POC RAPID [id number], MOLECULAR Routine 11/05/2024 11:35 AM EST Symptoms of upper respiratory infection (URI) POC RESPIRATORY SYNCYTIAL VIRUS Routine 11/05/2024 11:35 AM EST Symptoms of upper respiratory infection (URI) POC RAPID [id number], MOLECULAR Routine 10/16/2024 6:30 PM EST Upper respiratory tract infection, unspecified type COMPREHENSIVE METABOLIC PANEL Routine 09/28/2024 10:01 AM EST Pulmonary fibrosis (CMS/HCC V24, CMS/HCC V28) DEL SCREENING DIGITAL Routine 01/26/2021 1:33 PM EDT Encounter for screening mammogram for malignant neoplasm of breast from Last 3 Months or Most Recently Relevant to Health Maintenance Results * XR Chest 2 Views (12/25/2024 6:16 PM EDT) Only the most recent of2 resultswithin the time period is included. Anatomical Region Laterality Modality Body Radiographic Elysia ging 12/26/2024 8:06 AM EDT Impressions 12/26/2024 8:18 AM EDT No definite evidence of an acute chest process. POS - [id number] -------- FINAL REPORT -------- Dictated By: Shanna Tolbert Dictated Date: 12/26/2024 08:06 ET Assigned Physician: Shanna Tolbert Reviewed and Electronically Signed By: Shanna Tolbert Signed Date: 12/26/2024 08:18 ET Workstation ID: [id number] Transcribed By: Self Edit Transcribed Date: 12/26/2024 08:06 ET Narrative 12/26/2024 8:18 AM EDT EXAM: Chest x-ray HISTORY: ??New onset cough. COMPARISON: 11/05/2024, 07/05/2023, and 04/12/2023, chest CT 05/27/2023 and 06/04/2020 FINDINGS: PA and lateral views of the chest were performed. ?? Chronic coarse opacities and lucencies in the lower lungs which correspond with pulmonary fibrosis on CT. ??Much milder reticular opacities in the upper lungs as before. ??No definite infiltrate. ??No significant pleural effusions or evidence of pulmonary edema. Heart is top normal in size. ??Mediastinal contours appear stable. Dextroscoliosis of the thoracolumbar spine with multilevel degenerative changes. ??Stable grade 2 spondylolisthesis at L4-5 and grade 1 spondylolisthesis at L3- 4. ??Postsurgical changes of left shoulder arthroplasty. Procedure Note Shanna Tolbert MD - 12/26/2024 EXAM: Chest x-ray HISTORY: New onset cough. COMPARISON: 11/05/2024, 07/05/2023, and 04/12/2023, chest CT 05/27/2023 and06/04/2020 FINDINGS: PA and lateral views of the chest were performed. Chronic coarse opacities and lucencies in the lower lungs which correspondwith pulmonary fibrosis on CT. Much milder reticular opacities in theupper lungs as before. No definite infiltrate. No significant pleuraleffusions or evidence of pulmonary edema. Heart is top normal in size.Mediastinal contours appear stable. Dextroscoliosis of the thoracolumbarspine with multilevel degenerative changes. Stable grade 2spondylolisthesis at L4-5 and grade 1 spondylolisthesis at L3-4.Postsurgical changes of left shoulder arthroplasty. IMPRESSION: No definite evidence of an acute chest process. POS - [id number] -------- FINAL REPORT -------- Dictated By: Shanna Tolbert Dictated Date: 12/26/2024 08:06 ET Assigned Physician: Shanna Tolbert Reviewed and Electronically Signed By: Shanna Tolbert Signed Date: 12/26/2024 08:18 ET Workstation ID: [id number] Transcribed By: Self Edit Transcribed Date: 12/26/2024 08:06 ET Denny Dale MD IMG XR PROCEDURES Final Result * POC RAPID INFLUENZA A&B, Molecular (12/17/2024 4:39 PM EDT) Pathologist [facility] Rapid Influenza A Negative Negative Rapid Influenza B Negative Negative Swab Nasopharyngeal structure / Unknown 12/17/2024 4:39 PM EDT Grady THOMPSON POINT OF CARE TEST ENTER/EDIT OR DERABLES Final Result * (ABNORMAL) Poc Rapid [id number], MOLECULAR (12/17/2024 4:39 PM EDT) Only the most recent of3 resultswithin the time period is included. Pathologist [facility] COVID-19/SARS- COV-2 Rapid POC Positive(A ) Negative Swab Nasopharyngeal structure / Unknown 12/17/2024 4:39 PM EDT Grady THOMPSON POINT OF CARE TEST ENTER/EDIT OR DERABLES Final Result * POC respiratory syncytial virus manually resulted (11/05/2024 11:35 AM EST) [facility] RSV Rapid AG POC Negative Negative Swab Nasopharyngeal structure / Unknown 11/05/2024 11:35 AM EST us Denny Hernandez NP POINT OF CARE TEST ENTER/EDIT ORDERABLES Final Result * (ABNORMAL) Comprehensive metabolic panel (09/28/2024 10:01 AM EST) Sodium 137 133 - 145 mmol/L LAB CHEMISTRY METHOD 09/28/2024 4:22 PM [facility] Potassium 3.4(L) 3.5 - 5.5 mmol/L LAB CHEMISTRY METHOD 09/28/2024 4:22 PM [facility] Chloride 100 96 - 110 mmol/L LAB CHEMISTRY METHOD 09/28/2024 4:22 PM [facility] CO2 31 21 - 32 mmol/L LAB CHEMISTRY METHOD 09/28/2024 4:22 PM [facility] Anion Gap 6 3 - 11 LAB CHEMISTRY METHOD 09/28/2024 4:22 PM [facility] Glucose 72 70 - 100 mg/dL LAB CHEMISTRY METHOD 09/28/2024 4:22 PM [facility] BUN 21 5 - 25 mg/dL LAB CHEMISTRY METHOD 09/28/2024 4:22 PM [facility] Creatinine 1.48(H) 0.50 - 1.10 mg/dL LAB CHEMISTRY METHOD 09/28/2024 4:22 PM [facility] eGFR 38(L) >=60 mL/min/1. 73m2 LAB CHEMISTRY METHOD 09/28/2024 4:22 PM [facility] Comment:Calculation based on the??Chronic Kidney Disease Epidemiology Collaboration (CKD-EPI) equation refit??without adjustment for race. BUN/Creatinine Ratio 14.2 LAB CHEMISTRY METHOD 09/28/2024 4:22 PM [facility] Calcium 10.7(H) 8.5 - 10.5 mg/dL LAB CHEMISTRY METHOD 09/28/2024 4:22 PM [facility] AST (SGOT) 16 10 - 42 unit/L LAB CHEMISTRY METHOD 09/28/2024 4:22 PM [facility] ALT (SGPT) 13 10 - 60 unit/L LAB CHEMISTRY METHOD 09/28/2024 4:22 PM [facility] Alkaline Phosphatase 80 42 - 121 unit/L LAB CHEMISTRY METHOD 09/28/2024 4:22 PM [facility] Total Protein 6.5 6.0 - 8.0 g/dL LAB CHEMISTRY METHOD 09/28/2024 4:22 PM [facility] Albumin 3.7 3.2 - 5.0 g/dL LAB CHEMISTRY METHOD 09/28/2024 4:22 PM [facility] Total Bilirubin 0.4 0.0 - 1.4 mg/dL LAB CHEMISTRY METHOD 09/28/2024 4:22 PM [facility] Blood Venous blood specimen / Unknown Venipuncture / Unknown 09/28/2024 10:01 AM EST 09/28/2024 10:01 AM EST us Neena Calles [employer] LAB BLOOD ORDERABLES Fi nal Result [facility] [address] [place] [address], * DEL SCREENING DIGITAL (01/26/2021 1:33 PM EDT) Anatomical Region Laterality Modality Mammography 01/23/2021 8:14 AM EDT Narrative 01/26/2021 1:33 PM EDT [facility] Diagnostic Imaging Department [address] [place] [address] Patient: ??PER SHRESTHA V ?/Age/Sex: 1955 - 65 - F Unit#: ??[id number] ? Location/Status: ??SPDIMAM/REG CLI ? Mnemonic/Ordering Site: ??DIGSC/SPMAM Ordering Physician: ??JOSE A ALICIA MD Del Screening Digital - 01/23/21854 EXAM: [facility] Screening Digital EXAM DATE AND TIME: 01/23/2021 8:56 AM HISTORY: ??Screening. COMPARISON: ??09/10/19 ([place], [place]) TECHNIQUE: CC and MLO views of both breasts were obtained using full field digital mammography. Bilateral digital breast tomosynthesis was performed in the MLO projection. Computer aided detection with the [employer] 7.2-H was employed. TISSUE DENSITY: a. The breasts are almost entirely fatty. FINDINGS: No suspicious masses, grouped microcalcifications, or areas of architectural distortion are seen. The skin and vascularity are unremarkable. IMPRESSION: Stable mammographic appearance of the breasts. ??No evidence of malignancy is seen. A negative mammogram in the presence of a clinically suspicious palpable abnormality does not preclude the possibility of malignancy or alter the indications for biopsy. BI-RADS: ??Category 1: Negative RECOMMENDATION(S): 1: Routine screening mammogram BILATERAL in 1 year. [id number], 82052 3341F, 7025F Dictating Physician: ??DORIS WHITMORE MD Electronically Signed by: ??DORIS WHITMORE MD Dic Date/Time: ??01/26/21 1333 Sign date/Time: ??01/26/21 1333 Procedure Note Doris Whitmore MD - 08/24/2022 [facility] Diagnostic Imaging Department [address] [place] [address] Patient: PER SHRESTHA Je /Age/Sex: 1955 - 65 - F Unit#: [id number] Location/Status: SPDIMAM/REG CLI Mnemonic/Ordering Site: [facility] Ordering Physician: JOSE A ALICIA MD [facility] Screening Digital - 01/23/2155 EXAM: [facility] Screening Digital EXAM DATE AND TIME: 01/23/2021 8:56 AM HISTORY: Screening. COMPARISON: 09/10/19 ([facility], [place], [place]) TECHNIQUE: CC and MLO views of both breasts were obtained using fullfield digital mammography. Bilateral digital breast tomosynthesis was performedin the MLO projection. Computer aided detection with the [employer] 7.2-Swing[employer]as employed. TISSUE DENSITY: a. The breasts are almost entirely fatty. FINDINGS: No suspicious masses, grouped microcalcifications, or areas ofarchitectural distortion are seen. The skin and vascularity are unremarkable. IMPRESSION: Stable mammographic appearance of the breasts. No evidence of malignancyis seen. A negative mammogram in the presence of a clinically suspicious palpable abnormality does not preclude the possibility of malignancy or alter the indications for biopsy. BI-RADS: Category 1: Negative RECOMMENDATION(S): 1: Routine screening mammogram BILATERAL in 1 year. [address]3031, 16715 3341F, 7025F Dictating Physician: DORIS WHITMORE MD Electronically Signed by: DORIS WHITMORE MD Dic Date/Time: 01/26/21 1333 Sign date/Time: 01/26/21 1333 Jose A Alicia MD IMG BI PROCEDURES Final Result from Last 3 Months or Most Recently Relevant to Health Maintenance Additional Health Concerns Infection Onset Date Last Indicated COVID-19 12/17/2024 12/17/2024 [place] [id number] MEDICARE [employer] GENERIC Care Teams Artificial Flowers Supervisor Relationship Specialty Start Date End Date Jose A Alicia MD [address] [place] [address] PCP - General Internal Medicine 04/29/20
--- OUTSIDE RECORDS SUMMARY | 2025-01-01 12:53 | XMS_ITS | Encounter Summary ---
Author Organization [facility] Address [address] [place] [address] Care Team Providers Care Surgical Tech Name Role Phone Jose A Clemons MD Primary Care Provider Unavailab le Reason for Visit * Reason Onset Date Comments DME Request 06/19/2024 Encounter Details Date Type Department Care Team Description 06/19/2024 Telephone Pulmonology - [place] 175 [facility] [address] [place] [address] Neena Calles APRN 175 [facility] [address] [place] [address] DME Request Social History Tobacco Use Types Packs/Day Years [...] encounter Miscellaneous Notes * Telephone Encounter - Neena Calles APRN - 06/19/2024 9:48 AM EDT Patient states machine making significant noise unable to sleep with it. Please ask Ziyad if they can take a look at the machine since she just received it. Also we need to leak her. documented in this encounter Plan of Treatment Not on file documented as of this encounter Visit Diagnoses Not on filedocumented in this encounter Care Teams Surgical Tech Relationship Specialty Start Date End Date Jose A Clemons MD PCP - General Internal Medicine 04/29/20 documented as of this encounter
--- OUTSIDE RECORDS SUMMARY | 2025-01-01 12:53 | XMS_ITS | Encounter Summary ---
Author Organization [facility] Address [address] [place] [address] Care Team Providers Care Box Attacher Name Role Phone Jose A Clemons MD Primary Care Provider [facility] le Encounter Details Date Type Department Care Team Description 04/16/2020 Paediatric Thoracic Physician Report Medical Records [address] [place] [address] Jose A Clemons MD Social History Tobacco Use Types Packs/Day Years Used Date Smoking Tobacco: Never Assessed Alcohol Habits Answer Date Recorded How often [...] on filedocumented in this encounter Care Teams Box Attacher Relationship Specialty Start Date End Date Jose A Clemons MD PCP - General Internal Medicine 04/29/20 documented as of this encounter
--- OUTSIDE RECORDS SUMMARY | 2025-01-01 12:53 | XMS_ITS | Encounter Summary ---
Author Organization [facility] Address [address] [place] [address] Care Team Providers Care Podiatric Technician Name Role Phone Jose A Clemons MD Primary Care Provider Unavailab le Encounter Details Date Type Department Care Team Description 04/14/2023 Orders Only Medical Records [address] [place] [address] Abstract, Provider Social History Tobacco Use Types Packs/Day Years [...] suspected to have Coronavirus/COVID-19? No / Unsure 04/12/2023 2:18 PM EDT documented as of this encounter Plan of Treatment Not on file documented as of this encounter Procedures Procedure Name Priority Date/Time Associated Diagnosis Comments OUTSIDE LAB Routine 04/12/2023 documented in this encounter Results * OUTSIDE LAB (04/12/2023) Provider Abstract LAB documented in this encounter Visit Diagnoses Not on filedocumented in this encounter Care Teams Podiatric Technician Relationship Specialty Start Date End Date Jose A Clemons MD PCP - General Internal Medicine 04/29/20 documented as of this encounter
--- OUTSIDE RECORDS SUMMARY | 2025-01-01 12:53 | XMS_ITS | Encounter Summary ---
Author Organization [facility] Address [address] [place] [address] Care Team Providers Care Dry Finisher Name Role Phone Jose A Clemons MD Primary Care Provider Unavailab le Reason for Visit * Reason Onset Date Comments Information Needed 07/07/2020 Encounter Details Date Type Department Care Team Description 07/07/2020 Telephone Pulmonology - [place] [address] [facility] [address] [place] [address] Neena Calles APRN [address] [facility] [address] [place] [address] Information Needed Social History Tobacco Use Types Packs/Day Years [...] Exposure Response Date Recorded In the last month, have you been in contact with someone who was confirmed or suspected to have Coronavirus / COVID-19? No / Unsure 07/04/2020 10:26 AM EDT documented as of this encounter Miscellaneous Notes * Telephone Encounter - Jeanette Godwin M.A. - 07/07/2020 1:53 PM EST Called the office before our lunch break and I ask to speak with Dr Garnica but the medical records receptionist took you personal phone number I told her that you will be available to speak with Dr Garnica after 1:40 pm. documented in this encounter Plan of Treatment Not on file documented as of this encounter Visit Diagnoses Not on filedocumented in this encounter Care Teams Dry Finisher Relationship Specialty Start Date End Date Jose A Clemons MD PCP - General Internal Medicine 04/29/20 documented as of this encounter
--- OUTSIDE RECORDS SUMMARY | 2025-01-01 12:53 | XMS_ITS | Encounter Summary ---
Author Organization [facility] Address [address] [place] [address] Care Team Providers Care Alum Operator Name Role Phone Jose A Clemons MD Primary Care Provider Unavail le Encounter Details Date Type Department Care Team Description 09/01/2020 Transfer Records Medical Records [address] [place] [address] Abstract, Provider Social History Tobacco Use Types [...] have Coronavirus / COVID-19? No / Unsure 09/03/2020 11:04 AM EST documented as of this encounter Plan of Treatment Not on file documented as of this encounter Visit Diagnoses Not on filedocumented in this encounter Care Teams Alum Operator Relationship Specialty Start Date End Date Jose A Clemons MD PCP - General Internal Medicine 04/29/20 documented as of this encounter
--- OUTSIDE RECORDS SUMMARY | 2025-01-01 12:53 | XMS_ITS | Encounter Summary ---
Author Organization [facility] [place] Address [address] [place] [address] Care Team Providers Care Radiologic Technician Name Role Phone Jose A Clemons MD Primary Care Provider Unavailab le Reason for Visit * Reason Onset Date Comments Follow-up 09/22/2022 Order for R shou lder MRI / Need visit to evaluate Left shoulder Encounter Details Date Type Department Care Team Description 09/22/2022 Telephone [facility] [address] [place] [address] [place] [phone] Shwetha Teresa APRN Follow-up (Order for R shoulder MRI / Need visit to evaluate Left shoulder) Social History Tobacco Use Types Packs/Day Years [...] suspected to have Coronavirus/COVID-19? No / Unsure 09/09/2022 8:33 AM EST documented as of this encounter Miscellaneous Notes * Telephone Encounter - Donna Peterson-Isidro Conway - 09/27/2022 11:27 AM EST Faxed request for medical information was sent to: [facility], [place] [address] Attn: HIM Dept/[place] Awaiting requested information. * Telephone Encounter - Donna Ku M.A. - 09/27/2022 11:03 AM EST Telephone Information: Work Phone Not on file. Called and spoke with patient. Patient states she isn't sure what date she had the left shoulder surgery. Patient states is was done at [facility]. Will try and reach out to obtain requested information. * Telephone Encounter - Donna Ku M.A. - 09/22/2022 2:48 PM EST Noted. Message has been routed to the provider. * Telephone Encounter - Balbina Mcbride - 09/22/2022 9:11 AM EST Received call from patient, she has decided she would like to have an MRI ordered for both of her shoulders due to increased pain, and she states she is also having neck pain. She can be reached at [phone].Thanks. documented in this encounter Plan of Treatment Not on file documented as of this encounter Visit Diagnoses Diagnosis Nontraumatic complete tear of right rotator cuff- Primary Right shoulder pain, unspecified chronicity documented in this encounter Care Teams Radiologic Technician Relationship Specialty Start Date End Date Jose A Clemons MD PCP - General Internal Medicine 04/29/20 documented as of this encounter
--- OUTSIDE RECORDS SUMMARY | 2025-01-01 12:53 | XMS_ITS | Encounter Summary ---
Author Organization [facility] Address [address] [place] [address] Care Team Providers Care Dynamometer Tester Name Role Phone Jose A Clemons MD Primary Care Provider Unavail le Encounter Details Date Type Department Care Team Description 06/29/2023 Orders Only Medical Records [address] [place] [address] Social History Tobacco Use Types Packs/Day Years [...] Name Priority Date/Time Associated Diagnosis Comments OUTSIDE SLEEP STUDY Routine 05/22/2023 documented in this encounter Results * OUTSIDE SLEEP STUDY (05/22/2023) [facility] PULMONOLOGY documented in this encounter Visit Diagnoses Not on filedocumented in this encounter Care Teams Dynamometer Tester Relationship Specialty Start Date End Date Jose A Clemons MD PCP - General Internal Medicine 04/29/20 documented as of this encounter
--- OUTSIDE RECORDS SUMMARY | 2025-01-01 12:53 | XMS_ITS ---
Author Organization [facility] Address [address] [address] Care Team Providers Care Instructor Ballroom Dancing Name Role Phone MESERET ALICIA Primary Care Provider [phone] REASON FOR VISIT Omeprazole refill Medications Medication SIG (Take, Route, Frequency, Duration) Notes Start Date End Date Status predniSONE 10 MG 1 tablet Orally Once a day for 7 days 11/17/2023 Unknown Rosuvastatin Calcium 5 MG TAKE 1 [...] 8 hours for 10 days 02/21/2024 Unknown Triamterene-HCTZ 75-50 MG TAKE 1 TABLET [...] BY MOUTH EVERY DAY for 90 Unknown Omeprazole 20 MG 1 capsule 30 minutes before morning meal Orally Once a day Unknown Encounters Encounter Location Date Provider Diagnosis [facility] [address] [facility] [address] [place] [address] 11/14/2024 MESERET ALICIA Plan Of Treatment No Information Progress Notes * Giuseppe SANABRIAB:1955 ( 69 yo F)Acc No.[id number]:11/14/2024 Patient:Samantha CROWDER :1955???Age:69 Y???Sex:Female Address:[address] [place] [address] Subjective: * Chief Complaints: * ???Omeprazole refill * Medical History:? * Surgical History:? * Hospitalization/Major Diagno stic Procedure:? * Medications:?UnknownOmeprazo le 20 MG Capsule Delayed Release 1 capsule 30 minutes before morning meal Orally Once a day Triamterene-HCTZ 75-50 MG Tablet TAKE 1 TABLET BY MOUTH EVERY DAY IN THE MORNING FOR 90 DAYS Amitriptyline HCl 50 MG Tablet TAKE 1 TABLET BY MOUTH EVERYDAY AT BEDTIME oxyCODONE HCl 10 MG Tablet 1 tablet as needed Orally daily , Notes to Pharmacist: Partial Fill upon Patient RequestGabapentin 800 MG Tablet 1 capsule Orally 2 times a day Atenolol 50 MG Tablet TAKE 1 TABLET BY MOUTH EVERY DAY Rosuvastatin Calcium 5 MG Tablet TAKE 1 TABLET BY MOUTH EVERY DAY FOR 90 DAYS HYDROcodone-Acetaminophen 10-325 MG Tablet 1 tablet as needed Orally 2 TIMES A DAY traMADol HCl 50 MG Tablet 1 tablet as needed Orally 3 times a day oxyCODONE HCl 5 MG Tablet 1 tablet as needed Orally 8 hours predniSONE 10 MG Tablet 1 tablet Orally Once a day Unknown Omeprazole 20 MG Capsule Delayed Release 1 capsule 30 minutes before morning meal Orally Once a day Unknown Triamterene-HCTZ 75-50 MG Tablet TAKE 1 TABLET BY MOUTH EVERY DAY IN THE MORNING FOR 90 DAYS Unknown Amitriptyline HCl 50 MG Tablet TAKE 1 TABLET BY MOUTH EVERYDAY AT BEDTIME Unknown oxyCODONE HCl 10 MG Tablet 1 tablet as needed Orally daily , Notes to Pharmacist: Partial Fill upon Patient RequestUnknown Gabapentin 800 MG Tablet 1 capsule Orally 2 times a day Unknown Atenolol 50 MG Tablet TAKE 1 TABLET BY MOUTH EVERY DAY Unknown Rosuvastatin Calcium 5 MG Tablet TAKE 1 TABLET BY MOUTH EVERY DAY FOR 90 DAYS Unknown HYDROcodone-Acetaminophen 10-325 MG Tablet 1 tablet as needed Orally 2 TIMES A DAY Unknown traMADol HCl 50 MG Tablet 1 tablet as needed Orally 3 times a day Unknown oxyCODONE HCl 5 MG Tablet 1 tablet as needed Orally 8 hours Unknown predniSONE 10 MG Tablet 1 tablet Orally Once a day Objective: * Vitals:? * Physical Examination:? Assessment: Plan: * Treatment: * Procedure Codes:? * true * Date:? Generated for Kelvin esquivel/Mani/Natasha on:?01/01/2025 12:53 PM EDT
--- OUTSIDE RECORDS SUMMARY | 2025-01-01 12:53 | XMS_ITS | Encounter Summary ---
Author Organization [facility] Address [address] [place] [address] Care Team Providers Care Motor Setter Name Role Phone Jose A Clemons MD Primary Care Provider Unavailab le Reason for Visit * Reason Onset Date Comments refill request 11/04/2020 Encounter Details Date Type Department Care Team Description 11/04/2020 Refill Pulmonology - [place] [address] [facility] [address] [place] [phone] Neena Calles, JOSH [address] [facility] [address] [place] [phone] refill request Social History Tobacco Use Types Packs/Day Years [...] encounter Miscellaneous Notes * Telephone Encounter - Malena Centeno - 11/04/2020 1:04 PM EST Patient would like script to be: E-PRESCRIBED/FAXED TO PHARMACY WHEN WAS THE PATIENT'S LAST APPOINTMENT WITH THE PRESCRIBING PROVIDER? 09/03/20 Does patient have an upcoming appointment? Yes 12/08/20 (THE MEDICATION REQUESTED IS ON THE MED LIST ABOVE) All of the medications requested were on the CURRENT MEDS list Did you check the Pharmacy information above?: YES Patient wants: 30 -day supply Is this a mail order prescription request ? NO Patients current insurance carrier is: [place] / [place] / Product Type: MEDICARE [id number] documented in this encounter Plan of Treatment Not on file documented as of this encounter Visit Diagnoses Diagnosis Pulmonary fibrosis (HCC) Postinflammatory pulmonary fibrosis documented in this encounter Care Teams Motor Setter Relationship Specialty Start Date End Date Jose A Clemons MD PCP - General Internal Medicine 04/29/20 documented as of this encounter
--- OUTSIDE RECORDS SUMMARY | 2025-01-01 12:53 | XMS_ITS | Encounter Summary ---
Author Organization [facility] Address [address] [place] [address] Care Team Providers Care Director Of Women'S Services Name Role Phone Jose A Clemons MD Primary Care Provider [facility] le Encounter Details Date Type Department Care Team Description 12/19/2020 Cooking Appliance Repair Technician Report Medical Records [address] [place] [address] Jose A Clemons MD Social History Tobacco [...] on filedocumented in this encounter Care Teams Director Of Women'S Services Relationship Specialty Start Date End Date Jose A Clemons MD PCP - General Internal Medicine 04/29/20 documented as of this encounter
--- OUTSIDE RECORDS SUMMARY | 2025-01-01 12:53 | XMS_ITS | Encounter Summary ---
Author Organization [facility] Address [address] [place] [address] Care Team Providers Care Lehr Attendant Name Role Phone Jose A Clemons MD Primary Care Provider Unavailab le Encounter Details Date Type Department Care Team Description 07/23/2020 Release of Information Medical Records [address] [place] [address] Abstract, Provider Social History Tobacco Use Types [...] AM EDT documented as of this encounter Nursing Notes * Romelia Hester - 07/23/2020 11:37 AM EST AUTHORIZATION TO OBTAIN RECORDS FAXED TO LORETTA CLAUDIO MD documented in this encounter Plan of Treatment Not on file documented as of this encounter Visit Diagnoses Not on filedocumented in this encounter Care Teams Lehr Attendant Relationship Specialty Start Date End Date Jose A Clemons MD PCP - General Internal Medicine 04/29/20 documented as of this encounter
--- OUTSIDE RECORDS SUMMARY | 2025-01-01 12:53 | XMS_ITS ---
Author Name [facility] Organization Unknown Encounters Encounter Type Encounter Reason Primary Diagnosis Location Date Ambulatory [facility] 07/03/2024 Care Team Organization Name Specialty Phone Email Start Date End Da te [facility] 20[address] [facility] 11/29/2024
--- OUTSIDE RECORDS SUMMARY | 2025-01-01 12:53 | XMS_ITS | Encounter Summary ---
Author Organization [facility] Address [address] [place] [address] Care Team Providers Care Field Care Coordinator Name Role Phone Jose A Clemons MD Primary Care Provider Unavailab le Reason for Visit * Reason Onset Date Comments refill request 10/13/2020 Encounter Details Date Type Department Care Team Description 10/13/2020 Refill Pulmonology - [place] [address] [facility] [address] [place] [phone] Neena Calles, JOSH [address] [facility] [address] [place] [phone] refill request Social History Tobacco Use Types [...] Telephone Encounter - Jeanette Godwin M.A. - 10/15/2020 9:45 AM EST Medication sent to pharmacy * Telephone Encounter - Jennifer Crowe - 10/15/2020 9:31 AM EST Patient states [facility] has been trying to reach us regarding Albuterol and have left messages and gotten no reply. I informed patient we got a request on 10.13.20 and script was sent to pharmacy. Patientwould like resent or called in * Telephone Encounter - Jennifer Crowe - 10/13/2020 4:04 PM EST NOV 10.28.20 documented in this encounter Plan of Treatment Not on file documented as of this encounter Visit Diagnoses Diagnosis Pulmonary fibrosis (HCC) Postinflammatory pulmonary fibrosis documented in this encounter Care Teams Field Care Coordinator Relationship Specialty Start Date End Date Jose A Clemons MD PCP - General Internal Medicine 04/29/20 documented as of this encounter
--- OUTSIDE RECORDS SUMMARY | 2025-01-01 12:53 | XMS_ITS | Encounter Summary ---
Author Organization [facility] Address [address] [place] [address] Care Team Providers Care Clinical Laboratory Technician Name Role Phone Jose A Clemons MD Primary Care Provider Unavailab le Reason for Visit * Reason Onset Date Comments Orders Call 05/16/2020 Encounter Details Date Type Department Care Team Description 05/16/2020 Telephone Radiology - [place] [address] [place] [address] Neena Calles APRN [address] [facility] [address] [place] [address] Orders Call Social History Tobacco Use Types Packs/Day Years [...] have Coronavirus / COVID-19? No / Unsure 05/09/2020 9:09 AM EDT documented as of this encounter Miscellaneous Notes * Telephone Encounter - Katarzyna Hudson - 05/16/2020 9:54 AM EDT Jaswinder Called pt to schedule her Chest CT. She would prefer this to be done at [facility]. Please place an external order for this. Thank you Radiolgy documented in this encounter Plan of Treatment Not on file documented as of this encounter Visit Diagnoses Not on filedocumented in this encounter Care Teams Clinical Laboratory Technician Relationship Specialty Start Date End Date Jose A lCemons MD PCP - General Internal Medicine 04/29/20 documented as of this encounter
--- OUTSIDE RECORDS SUMMARY | 2025-01-01 12:53 | XMS_ITS | Encounter Summary ---
Author Organization [facility] Address [address] [place] [address] Care Team Providers Care Asphalt Layer Name Role Phone Jose A Clemons MD Primary Care Provider Unavailab le Encounter Details Date Type Department Care Team Description 10/08/2022 Orders Only Pulmonology - [place] [address] [facility] [address] [place] [phone] Neena Calles APRN [address] [facility] [address] [place] [phone] Primary hypertension; DANISHA (obstructive sleep apnea); Snoring Social History Tobacco Use Types Packs/Day Years [...] suspected to have Coronavirus/COVID-19? No / Unsure 10/02/2022 2:11 PM EST documented as of this encounter Progress Notes * Neena Calles APRN - 10/08/2022 1:49 PM EST Please reach out to patient to let them know to contact SMS for new test since current testing did not have sufficient data. documented in this encounter Plan of Treatment Not on file documented as of this encounter Procedures Procedure Name Priority Date/Time Associated Diagnosis Comments SLEEP STUDY-FULL NEURO 16 CHANNEL Routine 09/28/2022 Primary hypertension DANISHA (obstructive sleep apnea) Snoring documented in this encounter Results * SLEEP STUDY-FULL NEURO 16 CHANNEL (09/28/2022) Neena Calles APRN PULMONOLOGY documented in this encounter Visit Diagnoses Diagnosis Primary hypertension Unspecified essential hypertension DANISHA (obstructive sleep apnea) Obstructive sleep apnea (adult) (pediatric) Snoring Other dyspnea and respiratory abnormality documented in this encounter Care Teams Asphalt Layer Relationship Specialty Start Date End Date Jose A Clemons MD PCP - General Internal Medicine 04/29/20 documented as of this encounter
--- OUTSIDE RECORDS SUMMARY | 2025-01-01 12:53 | XMS_ITS | Encounter Summary ---
Author Organization [facility] Address [address] [place] [address] Care Team Providers Care Food Porter Name Role Phone Jose A Clemons MD Primary Care Provider Joe silveira Encounter Details Date Type Department Care Team Description 05/07/2020 Release of Information Medical Records [address] [place] [address] Abstract, Provider Social History Tobacco Use Types [...] on filedocumented in this encounter Care Teams Food Porter Relationship Specialty Start Date End Date Jose A Clemons MD PCP - General Internal Medicine 04/29/20 documented as of this encounter
--- OUTSIDE RECORDS SUMMARY | 2025-01-01 12:53 | XMS_ITS | Clinical Summary ---
Author Organization [facility] Address [address] [facility] [address] [place] [address] Phone Care Team Providers Care Abstract Checker Name Role Phone Jose A Clemons MD Primary Care Provider [phone] Allergies No known active allergies Medications atenolol (TENORMIN) 50 MG tablet Take 1 tablet by mouth 1 (one) time each day 0 Active gabapentin (NEURONTIN) 800 MG tablet Take 1 tablet by mouth in the morning and 1 tablet at noon and 1 tablet in the evening and 1 tablet before bedtime. 0 Active rosuvastatin (CRESTOR) 5 MG tablet Take 1 tablet by mouth 1 (one) time each day 0 Active alendronate (FOSAMAX) 70 MG tablet Take 1 tablet by mouth 1 (one) time each day 0 Active predniSONE (DELTASONE) 10 MG tablet Take 10 mg by mouth 1 (one) time each day 0 Active albuterol 0.63 MG/3ML nebulizer solution Take 0.63 mg by nebulization every 6 (six) hours if needed for wheezing Active amitriptyline (ELAVIL) 50 MG tablet Take 50 mg by mouth every night Active omeprazole (PriLOSEC) [address] capsule Take 1 capsule by mouth 1 (one) time each day 2 Active triamterene-hyd roCHLOROthiazid e (MAXZIDE) 75-50 MG per tablet Take 1 tablet by mouth 1 (one) time each day Active lisinopril 2.5 MG tablet Take 1 tablet by mouth 1 (one) time each day 3 Active fluticasone (FLONASE) 50 MCG/ACT nasal spray SPRAY 2 SPRAYS IN EACH NOSTRIL EVERY DAY 3 Active Active Problems Problem Noted Date Diagnosed Date Acute nontraumatic kidney injury 11/11/2022 Hypercalcemia 09/27/2022 Chronic kidney disease stage 4 04/29/2022 Disorder due to type 2 diabetes mellitus 022 Simple obesity 03/29/2022 Stage 3a chronic kidney disease 12/01/2020 Systemic lupus erythematosus 01/02/2020 Hypertension 03/16/2017 Anemia 05/09/2015 Pneumonia 09/05/2014 Overview (02/03/2021): 2014 bilateral with lung collapse Resolved Problems Problem Noted Date Diagnosed Date Resolved Date Bacterial pneumonia 02/03/2021 02/04/20 21 Dietary management surveillance 02/03/2021 02/03/2021 Migraine without aura, not refractory 02/03/2021 02/03/2021 Mixed hyperlipidemia 02/03/2021 021 Cardiac murmur 02/03/2021 02/03/2021 Obese class I 02/03/2021 02/03/2021 Primary osteoporosis 02/03/2021 021 Migraine with aura 02/03/2021 Finding related to substance use 08/27/2020 09/18/2021 Overview (02/03/2021): 11/14/2019 note lists opiate use. 11/14/2019 note lists opiate use. Chronic constipation 08/26/2020 022 Overview (02/03/2021): Prolapsed bowel 2008 Gastroesophageal reflux disease 08/26/2020 09/18/2021 Overview (02/03/2021): H/o PUD History of operative procedure on shoulder 08/26/2020 09/18/2021 Overview (02/03/2021): Rotator cuff injury. Rotator cuff injury. Mood disorder 08/26/2020 09/18/2021 Obstructive sleep apnea syndrome 08/26/2020 09/18/2021 Overview (02/03/2021): Does not use CPAP Does not use CPAP Pancreatitis 08/26/2020 09/18/2021 Overview (02/03/2021): 2010 2010 Postherpetic neuralgia 08/26/202009/18 Overview (02/03/2021): Shingles 2016 Osteoarthritis 07/01/2020 09/18/2021 Overview (02/03/2021): Lumbar spine Lumbar spine Lumbosacral radiculopathy 01/02/2020 Immunizations Immunization Administration Dates Next Due Hepatitis B 01/10/2019,04/12/2018 Influenza Split 08/05/2015 Influenza Split High Dose Pr eservative Free IM 09/02/2021,06/06/2020 Influenza TIV (IM) 07/08/2008 Influenza Whole 08/05/2015 Influenza, Quadrivalent, Preservative Free 06/23,05/23/2017,08/14/2016 Pneumococcal Conjugate 13-Valent 05/23/2017 Pneumococcal Polysaccharide 06/06/2015 SARS-CoV-2, Unspecified 12/04/2020 Family History Medical History Relation Comments Hypertension Father Relation Status Comments Father Mother Social History Tobacco Use Types Packs/Day Years Used Date Smoking Tobacco: Never Smokeless Tobacco: Never Tobacco Cessation:Counseling Given: Not Answered Alcohol Use Standard Drinks/Week Comments Never 0 (1 standard drink = 0.6 oz pur e alcohol) Comments Unknown Sex and Gender Information Value Date Recorded Sex Assigned at Not on file Legal Sex Female 4:43 PM EST Gender Identity Not on file Sexual Orientation Not on file Last Filed Vital Signs Vital Sign Reading Time Taken Comments Blood Pressure 106/70 01/20/2023 2:09 PM EDT Pulse 101 12/28/2022 2:26 PM EDT Temperature - - Respiratory Rate - - Oxygen Saturation 95% 12/28/2022 2:26 PM EDT Inhaled Oxygen Concentration - - Weight 83.7 kg (184 lb 9.6 oz) 01/20/2023 2:09 P M EDT Height 154.9 cm (5' 1 ) 11/11/2022 1:20 PM EST Body Mass Index 34.88 11/11/2022 1:20 PM EST Plan of Treatment Health Maintenance Due Date Last Done Comments Breast Cancer Screening 1955 Colorectal Cancer Screening: Annual FOBT 2003 Colorectal Cancer Screening: Colonoscopy 2003 Colorectal Cancer Screening: Sigmoidoscopy 2003 Pneumococcal Vaccine: 50+ Years (3 of 3 - PPSV23, PCV20 or PCV21) 06/06/2020 05/23/2017, 06/06/2015 Diabetes: Hemoglobin A1C 01/07/2022 Diabetes: Ophthalmology Exam 01/07/2022 Diabetes: Pedal Pulse Checked 01/07/2022 Diabetes: Sensory Foot Exam 01/07/2022 Diabetes: Visual Foot Exam 01/07/2022 Influenza Vaccine (Season Ended) 2025 09/02/2021, 06/06/2020, 06/23/2018, Additional history exists Pneumococcal Vaccine: Peds (0 to 5 Years) and At-Risk Patients (6 to 49 Years) Discontinued 05/23/2017, 06/06/2015 Hepatitis B Vaccine Aged Out 01/10/2019, 8 No longer eligible based on patient's age to complete this topic Insurance Medicare [facility] [address] [address] Medicare Care Teams Abstract Checker Relationship Specialty Start Date End Date Jose A Clemons MD [address] [place] [id number] PCP - General Internal Medicine 10/24/20
--- OUTSIDE RECORDS SUMMARY | 2025-01-01 12:53 | XMS_ITS ---
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 Please contact the patient to schedule.Adri Kayla 09/13/2024 10:48:07 AM > Referral Priority Routine REASON FOR VISIT PT Referral Encounters Encounter Location Date Provider Diagnosis [facility] [address] [facility] [address] [place] [address] 09/13/2024 MESERET ALICIA Plan Of Treatment Referrals Referral Date Details 09/13/2024 09/13/2024, Please e valuate and treat; 2 times a week for 6 weeks Progress Notes * Giuseppe SANABRIAB:1955 ( 69 yo F)Acc No.[id number]:09/13/2024 Patient:?Samantha SANABRIA :1955???Age:69 Y???Sex:Female Address:[address] [place] [id number] Subjective: * Chief Complaints: * ???PT Referral * Medical History:? * Surgical History:? * Hospitalization/Major Diagno stic Procedure:? * Medications:? Objective: * Vitals:? * Physical Examination:? Assessment: Plan: * Treatment: * Procedure Codes:? * true * Date:? Generated for Kelvin esquivel/Mani/Natasha on:?01/01/2025 12:52 PM EDT Consultation Request Notes Referral Date Referring Provider Referred Provider Not [place] 09/13/2024 MESERET ALICIA , Please evaluat e and treat; 2 times a week for 6 weeks
--- OUTSIDE RECORDS SUMMARY | 2025-01-01 12:54 | XMS_ITS | Data Portability ---
Author Organization [facility] Address [address] [facility] [address] [place] [address] Care Team Providers Care Crystal Cutter Name Role Phone JOANNE AARON Referring Provider LAZARA HERNANDEZ Primary Care Provider MESERET ALICIA Primary Care Provider Assessment Encounter Date Assessment Date Assessment LastModified by Organization Details LastModified Time 07/12/2024 07/12/2024 Samantha Sanabria is a 68 year old woman with right shoulder pain for the past few months . On exam ,she has pain on abduction and limited range of motion of her right shoulder. She is here for a trial of right shoulder steroid injections under? ? ?ultrasound guidance . The risks and benefits of the procedure? ? ? were discussed in detail. She wishes to proceed. She will follow up as needed. [email or web address] Not available 07/12/2024 16:26:42 08/13/2024 08/13/2024 Samantha Sanabria is a 68 year old woman with neck pain radiating into left upper back. She has myofascial pain syndrome in her left upper back. Trigger points were palpated with reproduction of her pain in the left trapezius muscle . She is here for a repeat trigger point injection in left trapezius muscle under ultrasound guidance. The risks and benefits of the procedure were discussed and she wishes to proceed. She will follow up for a LESI. I recommend continuing physical therapy for her right shoulder pain. She may consider a surgical consult for her right shoulder pain. [email or web address] Not available 08/13/2024 10:25:36 10/03/2024 10/03/2024 Samantha Sanabria is a 69 year old woman with low back pain radiating into the right lower extremity. On exam ,she has pain on flexion. Straight leg raising test is positive on the right. MRI Lumbar spine shows mild anterior spondylolisthesis at L4-5 with marked right and moderate left sided foraminal stenosis with probable Right L4 nerve root compression. She is here for a repeat Lumbar epidural steroid injections under fluoroscopic guidance . The risks and benefits of the procedure were discussed in detail. She wishes to proceed. She will follow up in three months lawson Not available 10/03/2024 14:00:34 10/15/2024 10/15/2024 Samantha Sanabria is a 69 year old woman with right shoulder pain for the past few months . On exam ,she has pain on abduction and limited range of motion of her right shoulder. She is here for a right shoulder steroid injections under? ? ?ultrasound guidance . The risks and benefits of the procedure? ? ? were discussed in detail. She wishes to proceed. She will follow up as needed. lawson Not available 10/15/2024 10:48:05 11/12/2024 11/12/2024 Samantha Sanabria is a 69 year old woman with left shoulder pain for the past few months . On exam ,she has pain on abduction and limited range of motion of her left shoulder. She is here for a trial of left shoulder steroid injection under? ? ?ultrasound guidance . The risks and benefits of the procedure? ? ? were discussed in detail. She wishes to proceed. She will follow up as needed. lawson Not available 11/12/2024 14:13:37 Plan of Treatment Reminders Order Date Submit Date Provider Last Modified By Organization Details Last Modified Time Details Appointments PROCEDURE 2024 09:30A M Scott blanc MD Not available Not available Not available PROCEDURE 2024 10:00A M Scott blanc MD Not available Not available Not available PROCEDURE 2024 10:00A M Scott blanc MD Not available Not available Not available PROCEDURE 2024 10:30A M Scott blanc MD Not available Not available Not available Lab None recorded. Referral None recorded. Procedures None recorded. Surgeries None recorded. Imaging None recorded. Medication Orders None recorded. Patient TargetsNo targets recorded. Patient Instructions Encounter Date Encounter Id Patient Instructions Last Modified By Organization Details Last Modified Time 07/12/2024 [id number] She was advised against bed rest lasting longer than four days and to continue activities as tolerated. [email or web address] Not available 07/12/2024 16:26:44 08/13/2024 [id number] She was advised against bed rest lasting longer than four days and to continue activities as tolerated. [email or web address] Not available 08/13/2024 10:23:51 10/03/2024 [id number] She was advised against bed rest lasting longer than four days and to continue activities as tolerated. [email or web address] Not available 10/03/2024 13:58:36 10/15/2024 [id number] She was advised against bed rest lasting longer than four days and to continue activities as tolerated. [email or web address] Not available 10/15/2024 10:46:46 11/12/2024 [id number] She was advised against bed rest lasting longer than four days and to continue activities as tolerated. [email or web address] Not available 11/12/2024 14:11:15 Reason for Referral None Reported. Problems Name Problem SNOMED Code Status Onset Date Resolution Date Notes Provider Name and Address Organization Details Recorded Time Lumbosacral radiculopathy [id number] Leonel blanc MD [address] [facility] , [address], [facility] [place], [address], [place] [facility] 13:06:26 Degeneration of lumbar intervertebral disc [id number] Leonel blanc MD [address] [facility] , [address], [facility] [place], [address], [place] [facility] 13:06:35 Spinal stenosis of lumbar region [id number] Leonel blanc MD [address] [facility] , [address], [facility] [place], [address], [place] [facility] 13:06:45 Lumbosacral spondylosis without myelopathy [id number] Leonel blanc MD [address] [facility] , [address], [facility] [place], [address], [place] [facility] 9 13:07:06 Displacement of lumbar intervertebral disc without myelopathy [id number] Active 2018 Scott blanc MD [address] , [address], [place], [address], [place] [facility] 9 15:30:10 Problem Notes None recorded. Procedures Surgical History Date Name Laterality Status Provider Name and Address Organization Details Recorded Time 11/13/19 25 Intra-articular shoulder steroid injection under ultrasound guidance completed Scott Park MD [address] , [address], [place], [address], [place] [facility] 11/12/2024 14:11:26 10/15/19 25 Intra-articular shoulder steroid injection under ultrasound guidance completed Scott Park MD [address] [facility] , [address], [place], [address], [place] [facility] 10/15/2024 10:46:57 10/03/19 25 Lumbar Epidural steroid injection under fluoroscopic guidance completed Scott Park MD [address] [facility] , [address], [place], [address], [place] [facility] 10/03/2024 13:59:30 08/13/20 24 Trigger Point Injections under ultrasound guidance completed Scott Park MD [address] , [address], [place], [address], [place] [facility] 08/13/2024 10:23:58 07/12/20 24 Intra-articular shoulder steroid injection under ultrasound guidance completed Scott Park MD [address] , [address], [place], [address], [place] [facility] 07/12/2024 16:26:56 06/27/20 24 Lumbar Epidural steroid injection under fluoroscopic guidance completed Scott Park MD [address] [facility] , [address], [place], [address], [place] [facility] 06/27/2024 13:06:10 05/10/20 24 Trigger Point Injections under ultrasound guidance completed Scott Park MD [address] [facility] , [address], [place], [address], [place] [facility] 05/10/2024 14:17:29 04/12/20 24 Intra-articular shoulder steroid injection under ultrasound guidance completed Scott Park MD [address] [facility] , [address], [place], [address], [place] [facility] 04/12/2024 10:14:42 03/14/20 24 Lumbar Epidural steroid injection under fluoroscopic guidance completed Scott Park MD [address] [facility] , [address], [place], [address], [place] [facility] 03/14/2024 14:24:45 02/06/20 24 Trigger Point Injections under ultrasound guidance completed Scott Park MD [address] [facility] , [address], [place], [address], [place] [facility] 02/06/2024 13:03:18 12/13/19 24 Lumbar Epidural steroid injection under fluoroscopic guidance completed Soctt Park MD [address] [facility] , [address], [place], [address], [place] [facility] 12/13/2023 10:25:57 11/07/19 24 Trigger Point Injections under ultrasound guidance completed Scott Park MD [address] [facility] , [address], [place], [address], [place] [facility] 11/07/2023 10:58:14 07/27/20 23 Lumbar Epidural steroid injection under fluoroscopic guidance completed Scott Park MD [address] [facility] , [address], [place], [address], [place] [facility] 07/27/2023 15:30:25 06/20/20 23 Trigger Point Injections under ultrasound guidance completed Scott Park MD [address] [facility] , [address], [place], [address], [place] [facility] 06/20/2023 10:28:40 03/28/20 23 Trigger Point Injections under ultrasound guidance completed Scott Park MD [address] [facility] , [address], [place], [address], [place] [facility] 03/28/2023 10:26:20 03/02/20 23 Lumbar Epidural steroid injection under fluoroscopic guidance completed Scott Park MD [address] , [address], [place], [address], [place] [facility] 03/02/2023 11:02:14 12/31/19 23 Trigger Point Injections under ultrasound guidance completed Scott Park MD [address] , [address], [place], [address], [place] [facility] 12/30/2022 11:28:37 12/10/19 23 Trigger Point Injections under ultrasound guidance completed Scott Park MD [address] , [address], [place], [address], [place] [facility] 12/09/2022 11:33:16 11/11/19 23 Lumbar Epidural steroid injection under fluoroscopic guidance completed Scott Park MD [address] , [address], [place], [address], [place] [facility] 11/11/2022 10:32:32 08/05/20 22 Trigger Point Injections under ultrasound guidance completed Scott Park MD [address] , [address], [place], [address], [place] [facility] 08/05/2022 10:55:59 06/09/20 22 Lumbar Epidural steroid injection under fluoroscopic guidance completed Scott Park MD [address] , [address], [place], [address], [place] [facility] 06/09/2022 14:30:02 05/06/20 22 Trigger Point Injections under ultrasound guidance completed Scott Park MD [address] , [address], [place], [address], [place] [facility] 05/06/2022 15:55:32 02/16/20 22 Breast reduction completed Scott Park MD [address] , [address], [place], [address], [place] [facility] 04/28/2022 10:54:11 01/19/20 22 Trigger Point Injections under ultrasound guidance completed Scott Park MD [address] , [address], [place], [address], [place] [facility] 01/18/2022 10:12:44 01/13/20 22 Lumbar Epidural steroid injection under fluoroscopic guidance completed Scott Park MD [address] , [address], [place], [address], [place] [facility] 01/12/2022 10:13:37 10/01/19 22 Trigger Point Injections under ultrasound guidance completed Scott Park MD [address] , [address], [place], [address], [place] [facility] 10/01/2021 10:48:15 09/16/19 22 Lumbar Epidural steroid injection under fluoroscopic guidance completed Scott Park MD [address] , [address], [place], [address], [place] [facility] 09/16/2021 10:19:23 06/29/20 21 Trigger Point Injections under ultrasound guidance completed Scott Park MD [address] , [address], [place], [address], [place] [facility] 06/29/2021 13:07:38 06/09/20 21 Lumbar Epidural steroid injection under fluoroscopic guidance completed Scott Park MD [address] , [address], [place], [address], [place] [facility] 06/09/2021 10:58:08 03/18/20 21 Greater Occipital Nerve Block(s) completed Scott Park MD [address] , [address], [place], [address], [place] [facility] 03/18/2021 14:52:36 02/26/20 21 Lumbar Epidural steroid injection under fluoroscopic guidance completed Scott Park MD [address] , [address], [place], [address], [place] [facility] 02/25/2021 13:40:58 01/13/20 21 Greater Occipital Nerve Block(s) completed Scott Park MD [address] , [address], [place], [address], [place] [facility] 01/12/2021 08:54:31 10/14/19 21 Lumbar Epidural steroid injection under fluoroscopic guidance completed Scott Park MD [address] [facility] , [address], [place], [address], [place] [facility] 10/14/2020 10:28:47 09/29/19 21 Trigger Point Injections under ultrasound guidance completed Scott Park MD [address] [facility] , [address], [place], [address], [place] [facility] 09/29/2020 13:41:24 08/07/20 20 Trigger Point Injections under ultrasound guidance completed Scott Park MD [address] [facility] , [address], [place], [address], [place] [facility] 08/11/2020 09:39:32 07/08/20 20 Lumbar Epidural steroid injection under fluoroscopic guidance completed Scott Park MD [address] [facility] , [address], [place], [address], [place] [facility] 07/08/2020 16:24:47 05/19/20 20 Trigger Point Injections under ultrasound guidance completed Scott Park MD [address] [facility] , [address], [place], [address], [place] [facility] 05/19/2020 11:55:58 05/01/20 20 Trigger Point Injections under ultrasound guidance completed Scott Park MD [address] [facility] , [address], [place], [address], [place] [facility] 05/01/2020 15:39:24 03/25/20 20 Lumbar Epidural steroid injection under fluoroscopic guidance completed Scott Park MD [address] [facility] , [address], [place], [address], [place] [facility] 03/25/2020 09:30:39 10/10/19 20 Lumbar Epidural steroid injection under fluoroscopic guidance completed Scott Park MD [address] [facility] , [address], [place], [address], [place] [facility] 10/10/2019 10:43:51 08/07/20 19 Lumbar Epidural steroid injection under fluoroscopic guidance completed Scott Park MD [address] [facility] , [address], [place], [address], [place] [facility] 08/08/2019 14:45:23 total shoulder replacement completed Scott Park MD [address] [facility] , [address], [place], [address], [place] [facility] 07/26/2019 13:33:05 drainage of pleural cavity via chest tube completed Scott Park MD [address] , [address], [place], [address], [place] [facility] 07/26/2019 13:34:02 hysterectomy completed Scott Park MD [address] , [address], [place], [address], [place] [facility] 07/26/2019 13:35:32 Imaging Results None recorded. Procedure Notes None recorded. Medical Equipment None Reported. Allergies No known drug allergies Medications Name Sig Start Date Stop Date Status Note LastModified by Organization Details LastModified Time cyclobenzap rine 10 mg tablet TAKE 1 TABLET BY MOUTH EVERYDAY AT BEDTIME 12/09 completed Not Available Not Available Not Available hydralazine 10 mg tablet TAKE 1 TABLET BY MOUTH TWICE A DAY WITH FOOD [id number] 03/14 completed Not Available Not Available Not Available prednisone 10 mg tablet TAKE 1 TABLET BY MOUTH EVERY DAY FOR 7 DAYS 02/05 completed Not Available Not Available Not Available torsemide 20 mg tablet TAKE 1 TABLET BY MOUTH TWICE A DAY 07/12 completed Not Available Not Available Not Available azithromyci n 250 mg tablet TAKE 2 TABLETS BY MOUTH TODAY, THEN TAKE 1 TABLET DAILY FOR 4 DAYS DIRECTED 11/12 completed Not Available Not Available Not Available ofloxacin 0.3 % eye drops INSTILL 1 DROP INTO AFFECTED EYE FOUR TIMES A DAY DIRECTED START 3 DAYS BEFORE SURGERY 05/10 completed Not Available Not Available Not Available benzonatate 200 mg capsule TAKE 1 CAPSULE BY MOUTH 3 TIMES DAILY NEEDED FOR COUGH FOR UP TO 7 DAYS. 12/09 completed Not Available Not Available Not Available senna 8.6 mg tablet TAKE 2 TABLETS BY MOUTH EVERY DAY NEEDED FOR CONSTIPAT ION 04/28 completed Not Available Not Available Not Available meloxicam 15 mg tablet TAKE 1 TABLET BY MOUTH EVERY DAY FOR 30 DAYS 03/14 completed Not Available Not Available Not Available ondansetron HCl 4 mg tablet 07/26 completed Not Available Not Available Not Available prednisone 20 mg tablet TAKE 2 TABLETS (40 MG TOTAL) BY MOUTH ONE TIME EACH DAY FOR 5 DAYS. 11/12 completed Not Available Not Available Not Available alendronate 70 mg tablet TAKE 1 TABLET ONCE WEEKLY. SWALLOW WHOLE W/FULL GLASS OF WATER AND REMAIN UPRIGHT FOR 1 HOUR 06/20 completed Not Available Not Available Not Available prednisone 5 mg tablet TAKE TWO TABLETS BY MOUTH ONE TIME DAILY 07/26 completed Not Available Not Available Not Available amlodipine 5 mg tablet TAKE 1 TABLET BY MOUTH EVERY DAY 04/28 completed Not Available Not Available Not Available sulfamethox azole 800 mg-trimetho prim 160 mg tablet 07/26 completed Not Available Not Available Not Available hydrocodone 10 mg-acetamin ophen 325 mg tablet 07/12 completed Not Available Not Available Not Available tramadol 50 mg tablet TAKE 1 TABLET BY MOUTH 3 TIMES A DAY FOR 28 DAYS NEEDED active Not Available Not Available No t Available amitriptyli ne 50 mg tablet TAKE 1 TABLET BY MOUTH EVERYDAY AT BEDTIME active Not Available Not Available No t Available amoxicillin 500 mg tablet TAKE 1 TABLET BY MOUTH THREE TIMES A DAY FOR 7 DAYS 12/30 completed Not Available Not Available Not Available pantoprazol e 20 mg tablet,allison yed release TAKE 1 TABLET BY MOUTH EVERY DAY 04/28 completed Not Available Not Available Not Available meloxicam 7.5 mg tablet TAKE 1 TABLET BY MOUTH EVERY DAY WITH FOOD 04/28 completed Not Available Not Available Not Available oxycodone-a cetaminophe n 5 mg-325 mg tablet 03/14 completed Not Available Not Available Not Available amitriptyli ne 25 mg tablet TAKE 2 TABLETS BY MOUTH AT BEDTIME 04/28 completed Not Available Not Available Not Available oxycodone-a cetaminophe n 10 mg-325 mg tablet 04/28 completed Not Available Not Available Not Available gabapentin 800 mg tablet TAKE 1 TABLET BY MOUTH FOUR TIMES A DAY active Not Available Not Available No t Available amitriptyli ne 10 mg tablet TAKE 4 TABLETS(4 0 MG) BY MOUTH EVERY NIGHT 06/09 completed Not Available Not Available Not Available benzonatate 100 mg capsule TAKE 1 CAPSULE BY MOUTH THREE TIMES A DAY NEEDED FOR 7 DAYS 11/06 completed Not Available Not Available Not Available oxycodone 5 mg capsule TAKE 1 CAPSULE BY MOUTH EVERY 6 HOURS NEEDED FOR PAIN 04/28 completed Not Available Not Available Not Available docusate sodium 100 mg capsule TAKE 1 CAPSULE EVERY 12 HOURS NEEDED FOR CONSTIPAT ION 08/05 completed Not Available Not Available Not Available gabapentin 300 mg capsule TAKE 2 CAPSULE BY MOUTH 4 TIMES A DAY. 04/28 completed Not Available Not Available Not Available triamterene 37.5 mg-hydrochl orothiazide 25 mg tablet TAKE 1 TABLET BY MOUTH EVERY DAY IN THE MORNING FOR 30 DAYS 12/30 completed Not Available Not Available Not Available omeprazole 20 mg capsule,del ayed release TAKE 20 MG TOTAL (1 CAPSULE) BY MOUTH DAILY. NEEDS APPT FOR REFILLS active Not Available Not Available No t Available hydroxyzine HCl 25 mg tablet TAKE 1 TABLET BY MOUTH EVERY DAY NEEDED 03/14 completed Not Available Not Available Not Available lisinopril 5 mg tablet TAKE 1 TABLET BY MOUTH EVERY DAY FOR 90 DAYS 12/09 completed Not Available Not Available Not Available triamterene 75 mg-hydrochl orothiazide 50 mg tablet TAKE 1 TABLET BY MOUTH EVERY DAY IN THE MORNING FOR 90 DAYS active Not Available Not Available No t Available ibuprofen 600 mg tablet TAKE 1 TABLET BY MOUTH 4 TIMES A DAY NEEDED FOR PAIN active Not Available Not Available No t Available albuterol sulfate HFA 90 mcg/actuati on aerosol inhaler INHALE 2 PUFFS INTO THE LUNGS 4 TIMES DAILY NEEDED FOR WHEEZING OR SHORTNESS OF BREATH. active Not Available Not Available No t Available fluticasone propionate 50 mcg/actuati on nasal spray,suspe nsion SPRAY 2 SPRAYS INTO EACH NOSTRIL EVERY DAY FOR 14 DAYS 06/20 completed Not Available Not Available Not Available lisinopril 2.5 mg tablet TAKE 1 TABLET BY MOUTH EVERY DAY FOR 90 DAYS 07/12 completed Not Available Not Available Not Available atenolol 50 mg tablet TAKE 1 TABLET BY MOUTH EVERY DAY active Not Available Not Available No t Available amoxicillin 875 mg-potassiu m clavulanate 125 mg tablet TAKE 1 TABLET BY MOUTH TWICE A DAY FOR 10 DAYS 11/12 completed Not Available Not Available Not Available oxycodone 5 mg tablet TAKE 1 TABLET BY MOUTH EVERY 8 HOURS FOR 10 DAYS NEEDED 05/10 completed Not Available Not Available Not Available neomycin-po lymyxin-hyd rocort 3.5 mg-10,000 unit/mL-1 % ear drops,susp INSTILL 4 DROPS INTO AFFECTED EAR 3 TIMES A DAY FOR 7 DAYS 06/20 completed Not Available Not Available Not Available Ascomp with Codeine 30 mg-50 mg-325 mg-40 mg capsule TAKE 1 CAPSULE BY MOUTH THREE TIMES A DAY FOR 28 DAYS. 05/06 completed Not Available Not Available Not Available Oyster Shell Calcium-Vit moulton D3 500 mg-5 mcg (200 unit) tablet TAKE 1 TABLET BY MOUTH TWICE A DAY 12/09 completed Not Available Not Available Not Available cyclobenzap rine 5 mg tablet 07/26 completed Not Available Not Available Not Available rosuvastati n 5 mg tablet TAKE 1 TABLET BY MOUTH EVERY DAY FOR 90 DAYS active Not Available Not Available No t Available topiramate 50 mg tablet TAKE 1 TABLET BY MOUTH TWICE A DAY 04/28 completed Not Available Not Available Not Available lactulose 10 gram/15 mL oral solution TAKE 15 ML BY MOUTH ONCE DAILY NEEDED 03/14 completed Not Available Not Available Not Available Flovent HFA 220 mcg/actuati on aerosol inhaler INL 1 PUFF ITL BID 04/28 completed Not Available Not Available Not Available fentanyl 12 mcg/hr transdermal patch APPLY 1 PATCH TOPICALLY ONTO SKIN EVERY 3 DAYS 04/28 completed Not Available Not Available Not Available oxycodone 10 mg tablet TAKE 1 TABLET BY MOUTH TWICE A DAY active Not Available Not Available No t Available butalbital 50 mg-acetamin ophen 300 mg-caffeine 40 mg-codeine 30 mg cap TAKE 1 CAPSULE BY MOUTH TWICE A DAY NEEDEDN OT COVERED 04/28 completed Not Available Not Available Not Available Flucelvax Quad 60 mcg (15 mcg x 4)/0.5 mL intramuscul ar susp ADM 0.5ML IM UTD 09/14 completed Not Available Not Available Not Available Fluzone High-Dose Quad (PF) 240 mcg/0.7 mL IM syringe PHARMACY ADMINISTE RED 07/08 completed Not Available Not Available Not Available Vitals Date Recorded Body height Heart rate Oxygen saturation Oxygen saturation in Arterial blood by Pulse oximetry Pain severity - 0-10 verbal numeric rating [Score] - Reported Systolic blood pressure Diastolic blood pressure Provider Name and Address Organization Details Last Updated DateTime 4 160.02 cm 72 /min 97 % 97 % 9 135 mm[Hg] 90 mm[Hg] Carol Ann isidro [facility] 4 13:11:45 Date Recorded Body height Heart rate Oxygen saturation Oxygen saturation in Arterial blood by Pulse oximetry Pain severity - 0-10 verbal numeric rating [Score] - Reported Systolic blood pressure Diastolic blood pressure Provider Name and Address Organization Details Last Updated DateTime 4 160.02 cm 96 /min 98 % 98 % 10 134 mm[Hg] 90 mm[Hg] Cass Ignacio [facility] 4 10:05:48 Date Recorded Body height Pain severity - 0-10 verbal numeric rating [Score] - Reported Heart rate Oxygen saturation Oxygen saturation in Arterial blood by Pulse oximetry Systolic blood pressure Diastolic blood pressure Provider Name and Address Organization Details Last Updated DateTime 5 160.02 cm 8 93 /min 99 % 99 % 140 mm[Hg] 97 mm[Hg] Cass Ignacio [facility] 5 11:23:35 Date Recorded Body height Heart rate Oxygen saturation Oxygen saturation in Arterial blood by Pulse oximetry Pain severity - 0-10 verbal numeric rating [Score] - Reported Systolic blood pressure Diastolic blood pressure Provider Name and Address Organization Details Last Updated DateTime 5 160.02 cm 107 /min 98 % 98 % 6 130 mm[Hg] 87 mm[Hg] Scott blanc MD [address] [facility] , [address], [place], [address], [place] [facility] 5 10:19:46 Date Recorded Body height Heart rate Oxygen saturation Oxygen saturation in Arterial blood by Pulse oximetry Pain severity - 0-10 verbal numeric rating [Score] - Reported Systolic blood pressure Diastolic blood pressure Provider Name and Address Organization Details Last Updated DateTime 5 160.02 cm 97 /min 95 % 95 % 6 125 mm[Hg] 85 mm[Hg] Cass Ignacio [place] - [facility] 5 10:05:51 Social History Question Answer Notes LastModified by Organizat ion Details LastModified Time Tobacco Smoking Status Never Smoker Not Available [employer] 06/20/2020 03:16:11 What Is Your Level Of Alcohol Consumption? None [id number] Information not available 06/20/2020 Which Illicit Or Recreational Drugs Have You Used? None [id number] Information not available 06/20/2020 Education Post Graduate Masters In Business Management Information not available 07/26/2019 What Is Your Occupation? Retired [id number] Information not available 06/20/2020 Live Alone Or With Others? With Others Information not available 07/26/2019 Marital Status Single Informati on not available 07/26/2019 Sex: Unknown Functional Status None recorded. Mental Status None recorded. Family History Relationship Description Onset Age of this Age Resolved Age Notes LastModified by Organization Details LastModified Time Sister Sarcoidosis tmanikantan Not blossom ilable 07/26/2019 13:31:03 Medical History Condition Response Fibromyalgia Y Arthritis Y Hypertension Y Osteoporosis Y Gynecological HistoryNo gynecological history recorded. Obstetrics History GPAL:G 0 P 0 0 0 0 Past Encounters Encounter ID Performer Location Encounter Start Date Encounter Closed Date Diagnosis/Indication Diagnosis SNOMED-CT Code Diagnosis ICD10 Code Diagnosis Note [id number] Scott Park MD PAIN OFFICE [address] [place] [address] 07/26/2019 13:02:05 07/27/2019 15:35:01 Spinal stenosis of lumbar region 68754524 M48.061 Lumbosacra l spondylosis without myelopathy 16047000 M47.817 Lumbosacra l radiculopathy 2040635 M54.17 Displaceme nt of lumbar intervertebral disc without myelopathy 24941719 M51.26 Rheumatoid arthritis 698 73131 M06.9 [id number] Scott Park MD PAIN OFFICE [address] [place] [address] 08/07/2019 14:21:15 08/08/2019 14:48:42 Spinal stenosis of lumbar region 69646798 M48.061 Lumbosacra l spondylosis without myelopathy 72351307 M47.817 Lumbosacra l radiculopathy 4358658 M54.17 Displaceme nt of lumbar intervertebral disc without myelopathy 93749561 M51.26 Rheumatoid arthritis 698 55997 M06.9 [id number] Scott Park MD [facility] [address] [place] [address] 09/14/2019 09:18:11 09/24/2019 20:11:11 Spinal stenosis of lumbar region 17679698 M48.061 Lumbosacra l spondylosis without myelopathy 27920922 M47.817 Lumbosacra l radiculopathy 3970351 M54.17 Displaceme nt of lumbar intervertebral disc without myelopathy 47218656 M51.26 Rheumatoid arthritis 698 32809 M06.9 [id number] Scott Park MD PAIN OFFICE [address] [place] [address] 10/10/2019 09:51:34 10/10/2019 10:47:30 Spinal stenosis of lumbar region 83260416 M48.061 Lumbosacra l spondylosis without myelopathy 19081919 M47.817 Lumbosacra l radiculopathy 3080976 M54.17 Displaceme nt of lumbar intervertebral disc without myelopathy 57087010 M51.26 Rheumatoid arthritis 698 29560 M06.9 [id number] Scott Park MD [facility] [address] [place] [address] 03/14/2020 09:02:17 03/14/2020 09:56:32 Spinal stenosis of lumbar region 42989239 M48.061 Lumbosacra l spondylosis without myelopathy 36357620 M47.817 Lumbosacra l radiculopathy 0337223 M54.17 Displaceme nt of lumbar intervertebral disc without myelopathy 25240502 M51.26 Rheumatoid arthritis 698 14053 M06.9 [id number] Scott Park MD [facility] [address] [place] [address] 03/25/2020 08:58:18 03/25/2020 09:33:56 Spinal stenosis of lumbar region 80386144 M48.061 Lumbosacra l spondylosis without myelopathy 68673781 M47.817 Lumbosacra l radiculopathy 1936279 M54.17 Displaceme nt of lumbar intervertebral disc without myelopathy 71955052 M51.26 Rheumatoid arthritis 698 75683 M06.9 [id number] Scott Park MD PAIN OFFICE [address] [facility] [place] [address] 04/28/2020 08:35:34 04/28/2020 16:00:35 Spinal stenosis of lumbar region 09759920 M48.061 Lumbosacra l spondylosis without myelopathy 11070517 M47.817 Lumbosacra l radiculopathy 6383865 M54.17 Displaceme nt of lumbar intervertebral disc without myelopathy 45490671 M51.26 Rheumatoid arthritis 698 85456 M06.9 Degenerati on of cervical intervertebral disc 36174122 M50.30 [id number] Scott Park MD PAIN OFFICE [address] [facility] [place] [address] 05/01/2020 14:55:16 05/01/2020 15:43:07 Spinal stenosis of lumbar region 26391926 M48.061 Lumbosacra l spondylosis without myelopathy 52848820 M47.817 Lumbosacra l radiculopathy 9071063 M54.17 Displaceme nt of lumbar intervertebral disc without myelopathy 96143698 M51.26 Rheumatoid arthritis 698 58193 M06.9 Degenerati on of cervical intervertebral disc 65093332 M50.30 [id number] Scott Park MD PAIN OFFICE [address] [facility] [place] [address] 05/19/2020 11:33:27 05/19/2020 12:00:06 Spinal stenosis of lumbar region 41226588 M48.061 Lumbosacra l spondylosis without myelopathy 26264490 M47.817 Lumbosacra l radiculopathy 6953295 M54.17 Displaceme nt of lumbar intervertebral disc without myelopathy 40555158 M51.26 Rheumatoid arthritis 698 46679 M06.9 Degenerati on of cervical intervertebral disc 71761281 M50.30 [id number] Scott Park MD PAIN OFFICE [address] [place] [address] 07/08/2020 13:58:13 07/08/2020 16:35:09 Spinal stenosis of lumbar region 98362223 M48.061 Lumbosacra l spondylosis without myelopathy 16736331 M47.817 Lumbosacra l radiculopathy 8999726 M54.17 Displaceme nt of lumbar intervertebral disc without myelopathy 23184967 M51.26 Rheumatoid arthritis 698 53036 M06.9 [id number] Scott Park MD PAIN OFFICE [address] [place] [address] 08/07/2020 10:31:32 08/11/2020 09:41:26 Spinal stenosis of lumbar region 18846750 M48.061 Lumbosacra l spondylosis without myelopathy 87929261 M47.817 Lumbosacra l radiculopathy 3457460 M54.17 Displaceme nt of lumbar intervertebral disc without myelopathy 22181768 M51.26 Rheumatoid arthritis 698 75231 M06.9 Degenerati on of cervical intervertebral disc 93732929 M50.30 [id number] Scott Park MD PAIN OFFICE [address] [place] [address] 09/29/2020 12:57:11 09/29/2020 13:58:29 Spinal stenosis of lumbar region 88675143 M48.061 Lumbosacra l spondylosis without myelopathy 81182522 M47.817 Lumbosacra l radiculopathy 5921338 M54.17 Displaceme nt of lumbar intervertebral disc without myelopathy 40318828 M51.26 Rheumatoid arthritis 698 01628 M06.9 Degenerati on of cervical intervertebral disc 88085523 M50.30 [id number] Scott Park MD PAIN OFFICE [address] [place] [address] 10/14/2020 09:59:16 10/14/2020 10:32:16 Spinal stenosis of lumbar region 46921904 M48.061 Lumbosacra l spondylosis without myelopathy 85758241 M47.817 Lumbosacra l radiculopathy 1784796 M54.17 Displaceme nt of lumbar intervertebral disc without myelopathy 78928141 M51.26 Rheumatoid arthritis 698 52700 M06.9 [id number] Scott Park MD PAIN OFFICE [address] [place] [address] 10/27/2020 14:25:57 10/27/2020 14:53:27 Spinal stenosis of lumbar region 20080806 M48.061 Lumbosacra l spondylosis without myelopathy 80286649 M47.817 Lumbosacra l radiculopathy 0843562 M54.17 Displaceme nt of lumbar intervertebral disc without myelopathy 09361046 M51.26 Rheumatoid arthritis 698 95171 M06.9 Degenerati on of cervical intervertebral disc 70312525 M50.30 Cervical radiculopathy 71887109 M54.12 [id number] Scott Park MD PAIN OFFICE [address] [place] [address] 01/08/2021 15:05:20 01/09/2021 10:22:20 Spinal stenosis of lumbar region 57445706 M48.061 Lumbosacra l spondylosis without myelopathy 87818265 M47.817 Lumbosacra l radiculopathy 3436214 M54.17 Displaceme nt of lumbar intervertebral disc without myelopathy 94016022 M51.26 Rheumatoid arthritis 698 88504 M06.9 Degenerati on of cervical intervertebral disc 21215681 M50.30 [id number] Scott Park MD PAIN OFFICE [address] [place] [address] 01/12/2021 08:27:30 01/12/2021 08:58:10 Spinal stenosis of lumbar region 51037886 M48.061 Lumbosacra l spondylosis without myelopathy 88431662 M47.817 Lumbosacra l radiculopathy 4854124 M54.17 Displaceme nt of lumbar intervertebral disc without myelopathy 47770052 M51.26 Rheumatoid arthritis 698 48660 M06.9 Degenerati on of cervical intervertebral disc 62776506 M50.30 [id number] Scott Park MD PAIN OFFICE [address] [place] [address] 02/25/2021 10:49:43 02/25/2021 13:43:23 Spinal stenosis of lumbar region 03341221 M48.061 Lumbosacra l spondylosis without myelopathy 55226940 M47.817 Lumbosacra l radiculopathy 7774563 M54.17 Displaceme nt of lumbar intervertebral disc without myelopathy 90767334 M51.26 Rheumatoid arthritis 698 44850 M06.9 68343 Scott Park MD PAIN OFFICE [address] [place] [address] 03/18/2021 14:25:50 03/18/2021 14:54:11 Spinal stenosis of lumbar region 65423162 M48.061 Lumbosacra l spondylosis without myelopathy 68790762 M47.817 Lumbosacra l radiculopathy 5113747 M54.17 Displaceme nt of lumbar intervertebral disc without myelopathy 68108160 M51.26 Rheumatoid arthritis 698 34639 M06.9 Degenerati on of cervical intervertebral disc 37141962 M50.30 24252 Scott Park MD PAIN OFFICE [address] [place] [address] 06/09/2021 10:22:40 06/09/2021 11:00:18 Spinal stenosis of lumbar region 95578564 M48.061 Lumbosacra l spondylosis without myelopathy 77909415 M47.817 Lumbosacra l radiculopathy 0909030 M54.17 Displaceme nt of lumbar intervertebral disc without myelopathy 91495803 M51.26 Rheumatoid arthritis 698 72700 M06.9 32803 Scott Park MD PAIN OFFICE [address] [place] [address] 06/29/2021 10:17:33 06/29/2021 13:10:49 Spinal stenosis of lumbar region 34835838 M48.061 Lumbosacra l spondylosis without myelopathy 82475928 M47.817 Lumbosacra l radiculopathy 3882735 M54.17 Displaceme nt of lumbar intervertebral disc without myelopathy 46222390 M51.26 Rheumatoid arthritis 698 64436 M06.9 Degenerati on of cervical intervertebral disc 87759219 M50.30 Muscle pain 53599228 M79 .18 [id number] Scott Park MD [facility] [address] [place] [address] 09/16/2021 09:47:24 09/16/2021 10:53:36 Spinal stenosis of lumbar region 76846444 M48.061 Lumbosacra l spondylosis without myelopathy 51448098 M47.817 Lumbosacra l radiculopathy 9929956 M54.17 Displaceme nt of lumbar intervertebral disc without myelopathy 09767153 M51.26 Rheumatoid arthritis 698 77459 M06.9 82110 Scott Park MD PAIN OFFICE [address] [place] [address] 10/01/2021 09:45:08 10/01/2021 10:50:53 Spinal stenosis of lumbar region 68978985 M48.061 Lumbosacra l spondylosis without myelopathy 65005903 M47.817 Lumbosacra l radiculopathy 7165851 M54.17 Displaceme nt of lumbar intervertebral disc without myelopathy 33980909 M51.26 Rheumatoid arthritis 698 71078 M06.9 Degenerati on of cervical intervertebral disc 12418007 M50.30 Muscle pain 87198426 M79 .18 25450 Scott Park MD PAIN OFFICE [address] [place] [address] 01/12/2022 09:46:30 01/12/2022 16:34:45 Spinal stenosis of lumbar region 15127310 M48.061 Lumbosacra l spondylosis without myelopathy 85754763 M47.817 Lumbosacra l radiculopathy 5604191 M54.17 Displaceme nt of lumbar intervertebral disc without myelopathy 51786905 M51.26 Rheumatoid arthritis 698 29152 M06.9 30367 Scott Park MD PAIN OFFICE [address] [place] [address] 01/18/2022 09:44:55 01/18/2022 10:15:10 Spinal stenosis of lumbar region 59788629 M48.061 Lumbosacra l spondylosis without myelopathy 20822941 M47.817 Lumbosacra l radiculopathy 9449975 M54.17 Displaceme nt of lumbar intervertebral disc without myelopathy 67495566 M51.26 Rheumatoid arthritis 698 83171 M06.9 Degenerati on of cervical intervertebral disc 13544717 M50.30 Muscle pain 95910270 M79 .18 70243 Scott Park MD PAIN OFFICE [address] [place] [address] 04/28/2022 10:03:08 04/28/2022 10:55:50 Spinal stenosis of lumbar region 12664209 M48.061 Lumbosacra l spondylosis without myelopathy 47023410 M47.817 Lumbosacra l radiculopathy 8242987 M54.17 Displaceme nt of lumbar intervertebral disc without myelopathy 16590264 M51.26 Rheumatoid arthritis 698 94771 M06.9 33786 Scott Park MD PAIN OFFICE [address] [place] [address] 05/06/2022 15:13:09 05/06/2022 16:06:46 Spinal stenosis of lumbar region 12308812 M48.061 Lumbosacra l spondylosis without myelopathy 34237678 M47.817 Lumbosacra l radiculopathy 6108999 M54.17 Displaceme nt of lumbar intervertebral disc without myelopathy 06415534 M51.26 Rheumatoid arthritis 698 69803 M06.9 Degenerati on of cervical intervertebral disc 04032309 M50.30 Muscle pain 28370137 M79 .18 39770 Scott Park MD PAIN OFFICE [address] [address] 06/09/2022 13:00:09 06/09/2022 14:55:02 Spinal stenosis of lumbar region 00036823 M48.061 Lumbosacra l spondylosis without myelopathy 18423970 M47.817 Lumbosacra l radiculopathy 0067996 M54.17 Displaceme nt of lumbar intervertebral disc without myelopathy 22620020 M51.26 Rheumatoid arthritis 698 33955 M06.9 52067 Scott Park MD PAIN OFFICE [address] [place] [address] 08/05/2022 10:05:51 08/05/2022 11:07:04 Spinal stenosis of lumbar region 86362339 M48.061 Lumbosacra l spondylosis without myelopathy 12727050 M47.817 Lumbosacra l radiculopathy 6671306 M54.17 Displaceme nt of lumbar intervertebral disc without myelopathy 87073546 M51.26 Rheumatoid arthritis 698 36015 M06.9 Degenerati on of cervical intervertebral disc 52601181 M50.30 Muscle pain 04327759 M79 .18 38078 Scott Park MD PAIN OFFICE [address] [place] [address] 11/10/2022 11:20:54 11/11/2022 10:35:13 Spinal stenosis of lumbar region 63514265 M48.062 Lumbosacra l spondylosis without myelopathy 23555587 M47.817 Lumbosacra l radiculopathy 2766410 M54.17 Displaceme nt of lumbar intervertebral disc without myelopathy 01121167 M51.26 Rheumatoid arthritis 698 88999 M06.9 33551 Scott Park MD PAIN OFFICE [address] [place] [address] 12/09/2022 10:58:55 12/09/2022 13:04:48 Spinal stenosis of lumbar region 49018429 M48.061 Lumbosacra l spondylosis without myelopathy 89669824 M47.817 Lumbosacra l radiculopathy 5330192 M54.17 Displaceme nt of lumbar intervertebral disc without myelopathy 21204004 M51.26 Rheumatoid arthritis 698 57759 M06.9 Degenerati on of cervical intervertebral disc 02330324 M50.30 Muscle pain 82908821 M79 .18 37461 Scott Park MD PAIN OFFICE [address] [place] [address] 12/30/2022 10:09:21 12/30/2022 11:38:35 Muscle pain 00914300 M79.18 Spinal paz nosis of lumbar region 73622050 M48.061 Degenerati on of cervical intervertebral disc 40905657 M50.30 36245 Scott Park MD PAIN OFFICE [address] [place] [address] 03/02/2023 09:49:56 03/02/2023 11:32:24 Spinal stenosis of lumbar region 43967904 M48.062 Lumbosacra l spondylosis without myelopathy 32049876 M47.817 Lumbosacra l radiculopathy 8877905 M54.17 Displaceme nt of lumbar intervertebral disc without myelopathy 05022015 M51.26 Rheumatoid arthritis 698 95497 M06.9 19744 Scott Park MD PAIN OFFICE [address] [place] [address] 03/28/2023 09:49:51 03/28/2023 13:34:11 Muscle pain 35615503 M79.18 Spinal paz nosis of lumbar region 46789847 M48.061 Degenerati on of cervical intervertebral disc 86842563 M50.30 11893 Scott Park MD [facility] [address] [place] [address] 06/20/2023 09:52:28 06/20/2023 10:31:13 Muscle pain 41002914 M79.18 Spinal paz nosis of lumbar region 21430262 M48.061 Degenerati on of cervical intervertebral disc 33173922 M50.30 28879 Scott Park MD PAIN OFFICE [address] [place] [address] 07/27/2023 09:15:02 07/27/2023 15:37:28 Spinal stenosis of lumbar region 94117397 M48.062 Lumbosacra l spondylosis without myelopathy 90180025 M47.817 Lumbosacra l radiculopathy 0033657 M54.17 Displaceme nt of lumbar intervertebral disc without myelopathy 76122247 M51.26 Rheumatoid arthritis 698 17047 M06.9 52811 Scott Park MD [facility] [address] [place] [address] 11/07/2023 10:36:47 11/07/2023 11:07:38 Muscle pain 83002448 M79.18 Spinal paz nosis of lumbar region 85981930 M48.061 Degenerati on of cervical intervertebral disc 70365010 M50.30 38438 Scott Park MD PAIN OFFICE [address] [place] [address] 12/13/2023 09:54:59 12/13/2023 11:31:17 Spinal stenosis of lumbar region 18754522 M48.062 Lumbosacra l spondylosis without myelopathy 70279254 M47.817 Lumbosacra l radiculopathy 0269343 M54.17 Displaceme nt of lumbar intervertebral disc without myelopathy 36114936 M51.26 Rheumatoid arthritis 698 11337 M06.9 31954 Scott Park MD PAIN OFFICE [address] [place] [address] 02/06/2024 10:55:01 02/06/2024 14:22:26 Muscle pain 80415412 M79.18 Spinal paz nosis of lumbar region 80566822 M48.061 Degenerati on of cervical intervertebral disc 48203884 M50.30 17770 Scott Park MD PAIN OFFICE [address] [place] [address] 03/14/2024 10:54:30 03/14/2024 16:08:23 Spinal stenosis of lumbar region 63190815 M48.062 Lumbosacra l radiculopathy 2688440 M54.17 Displaceme nt of lumbar intervertebral disc without myelopathy 25165436 M51.26 Rheumatoid arthritis 698 54681 M06.9 97775 Scott Park MD PAIN OFFICE [address] [facility] [place] [address] 04/12/2024 09:04:11 04/12/2024 11:13:27 Subacromial bursitis of right shoulder 5529997038 883884 M75.51 Inflammati on of joint of shoulder region 637325458 M13.811 66135 Scott Park MD [facility] [address] [place] [address] 05/10/2024 11:26:46 05/10/2024 15:14:44 Muscle pain 02259575 M79.18 Spinal paz nosis of lumbar region 75599997 M48.061 Degenerati on of cervical intervertebral disc 41258593 M50.30 84017 Scott Park MD PAIN OFFICE [address] [place] [address] 06/27/2024 11:23:07 06/27/2024 16:16:37 Spinal stenosis of lumbar region 71612117 M48.061 Lumbosacra l radiculopathy 5077433 M54.17 Displaceme nt of lumbar intervertebral disc without myelopathy 58901446 M51.26 Rheumatoid arthritis 698 94114 M06.9 05011 Scott Park MD PAIN OFFICE [address] [place] [address] 07/12/2024 13:02:29 07/12/2024 16:36:52 Subacromial bursitis of right shoulder 1504520331 488871 M75.51 Inflammati on of joint of shoulder region 623362758 M13.811 43133 Scott Park MD PAIN OFFICE [address] [facility] [place] [place] [address] 08/13/2024 09:59:07 08/13/2024 10:38:06 Muscle pain 80443727 M79.18 Spinal paz nosis of lumbar region 44217704 M48.061 Degenerati on of cervical intervertebral disc 15560591 M50.30 10446 Scott Park MD [facility] [address] [place] [address] 10/03/2024 11:03:01 10/03/2024 15:25:48 Lumbosacral radiculopathy 5225957 M54.17 Spinal paz nosis of lumbar region 39682993 M48.061 Displaceme nt of lumbar intervertebral disc without myelopathy 82066975 M51.26 Rheumatoid arthritis 698 56636 M06.9 81627 Scott Park MD PAIN OFFICE [address] [place] [address] 10/15/2024 10:14:16 10/15/2024 11:16:56 Subacromial bursitis of right shoulder 5936093924 259982 M75.51 Inflammati on of joint of shoulder region 692504943 M13.811 61874 Scott Park MD PAIN OFFICE [address] [place] [address] 11/12/2024 09:58:22 11/12/2024 14:16:26 Subacromial bursitis of left shoulder 0396786022 632202 M75.52 Inflammati on of joint of shoulder region 643099423 M13.812 Health Concerns Section Related Observation LastModified by Organization Detai ls LastModified Time None Recorded Concern Status LastModified by Organization Details LastModified Time None Recorded Advance Directives Directive None Recorded Payers Encounter Date Sequence Insurance Name Policy Number Policy Godinez Covered Member ID Godinez Member ID Guarantor Name 07/12/2024 2 [employer] (MEDICARE SUPPLEMENT) Samantha V Sanabria [id number] Samantha Sanabria 07/12/2024 1 MEDICARE [place]: [employer]ATIONAL [employer]MENT [employer] Samantha V Sanabria [id number] Samantha Sanabria 08/13/2024 2 [employer] (MEDICARE SUPPLEMENT) Samantha V Sanabria [id number] Samantha Sanabria 08/13/2024 1 [place] [employer] Samantha V Sanabria [id number] Samantha Sanabria 10/03/2024 2 [employer] (MEDICARE SUPPLEMENT) Samantha V Sanabria [id number] Samantha Sanabria 10/03/2024 1 [place] [employer] Samantha V Sanabria [id number] Samantha Sanabria 10/15/2024 2 [employer] (MEDICARE SUPPLEMENT) Samantha V Sanabria [id number] Samantha Sanabria 10/15/2024 1 [place] [employer] Samantha V Sanabria [id number] Samantha Sanabria 11/12/2024 2 [employer] (MEDICARE SUPPLEMENT) Samantha V Sanabria [id number] Samantha Sanabria 11/12/2024 1 [place] [employer] Samantha V Sanabria [id number] Samantha Sanabria Notes Date Note Type Note Provider Name and Address Organization Details Recorded Time 07/12/2024 text/html She is here for a right shoulder steroid injection under ultrasound guidance Scott Park MD [address] [facility] , [address], [place], [address], [place] [facility] 07/13/2024 09:41:56 08/13/2024 text/html She is here for a left trapezius muscle trigger point injection under ultrasound guidance. She reports some pain benefit from last injection. She is still having headaches.She is also having pain in her right shoulder and has seen an orthopedic surgeon who has recommended surgery. She is unsure if surgery is needed. The steroid injection did not help her pain. She is having trouble sleeping due to pain. She is doing physical therapy Scott Park MD [address] [facility] , [address], [place], [address], [place] [facility] 08/13/2024 10:51:15 10/03/2024 text/html She is here for a lumbar epidural steroid injection under fluoroscopic guidance. Scott Park MD [address] [facility] , [address], [place], [address], [place] [facility] 10/03/2024 15:31:00 10/15/2024 text/html She is here for a right shoulder steroid injection under ultrasound guidance Scott Park MD [address] [facility] , [address], [place], [address], [facility] 10/17/2024 16:50:35 11/12/2024 text/html She is here for a left shoulder steroid injection under ultrasound guidance Scott Park MD [address] [facility] , [address], [place], [address], [facility] 11/12/2024 14:20:35 OBGyn Episode No OBEpisode recorded.
--- OUTSIDE RECORDS SUMMARY | 2025-01-01 12:54 | XMS_ITS | Encounter Summary ---
Author Organization [facility] Address [address] [place] [address] Care Team Providers Care Project Manager Industrial Name Role Phone Jose A Clemons MD Primary Care Provider Unavailab le Reason for Visit * Reason Onset Date Comments Care Management 12/29/2022 Pain Management Cspine notes Encounter Details Date Type Department Care Team Description 12/29/2022 Telephone [facility] [address] [place] [phone] Shwetha Teresa APRN Care Management (Pain Management Cspine notes) Social History Tobacco Use Types Packs/Day Years [...] suspected to have Coronavirus/COVID-19? No / Unsure 12/29/2022 8:44 AM EDT documented as of this encounter Miscellaneous Notes * Telephone Encounter - Senait Sanders - 02/14/2023 9:34 AM EDT Requested notes they will contact pt to get verbal release to fax notes documented in this encounter Plan of Treatment Not on file documented as of this encounter Visit Diagnoses Not on filedocumented in this encounter Care Teams Project Manager Industrial Relationship Specialty Start Date End Date Jose A Clemons MD PCP - General Internal Medicine 04/29/20 documented as of this encounter
--- OUTSIDE RECORDS SUMMARY | 2025-01-01 12:54 | XMS_ITS | Encounter Summary ---
Author Organization [facility] Address [address] [place] [address] Care Team Providers Care Pole Lift Operator Name Role Phone Jose A Clemons MD Primary Care Provider Unavailab le Reason for Visit * Reason Onset Date Comments other 02/16/2023 Encounter Details Date Type Department Care Team Description 02/16/2023 Telephone [facility] [address] [place] [phone] Polo Carey MD [address] [place] [address] other Social History Tobacco Use Types Packs/Day Years [...] suspected to have Coronavirus/COVID-19? No / Unsure 02/01/2023 3:57 PM EDT documented as of this encounter Miscellaneous Notes * Telephone Encounter - Isma Bentley - 02/16/2023 11:04 AM EDT So I spoke with Samantha and it appears she contacted her PCP (Dr. Clemons) not for records, but for him toauthorize the Pain Management office to release their records to our office. Currently she is unable to drive and go to the office to sign the approval in-person, which is why she contacted dr. Clemons. Looks like she does give them the ok to release the notes on the spine. She is available for any questions/concerns at: [phone]. Isma Moeller * Telephone Encounter - Isma Bentley - 02/16/2023 10:23 AM EDT [place] and good alie. Today I received a call from Dr. Clemons's office on behalf of the patient Samantha. Their office received a call from Samantha requesting records, but they had no order from our office about that. She wanted to know if the office notes from 2020 would be ok for them to send to us, or if Dr. Carey wanted her to come in for that reason (cervical spine). If you have any questions, youcan contact Dr. Clemons's office at: [phone]. Isma Moeller documented in this encounter Plan of Treatment Not on file documented as of this encounter Visit Diagnoses Not on filedocumented in this encounter Care Teams Pole Lift Operator Relationship Specialty Start Date End Date Jose A Clemons MD PCP - General Internal Medicine 04/29/20 documented as of this encounter
--- OUTSIDE RECORDS SUMMARY | 2025-01-01 12:54 | XMS_ITS | Clinical Summary ---
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 Name Role Phone Unavailable Primary Care Provider Unavailabl e Social History Tobacco Use Types Packs/Day Years Used Date Smoking Tobacco: Never Assessed Comments Unknown Sex and Gender Information Value Date Recorded Sex Assigned at Not on file Legal Sex Female 5:30 PM EDT Gender Identity Not on file Sexual Orientation Not on file Plan of Treatment Upcoming Encounters Date Type Department Care Team (Late st Contact Info) Description 02/18/2025 10:00 AM EDT Clinical Support [facility] [place] [address] [facility], [place] [phone] Rogelio Mooney MD [address] [place] [address] [phone] Cecy Armando Au.D [address] [place] [address] [phone] Health Maintenance Due Date Last Done Comments Hepatitis C Virus Screening 1954 DTaP/Tdap/Td Vaccines (1 - Tdap) 1973 Mammogram 1994 Colonoscopy 1999 Pneumococcal Vaccines 50+ (1 of 1 - PCV) 2004 Zoster (Shingles) Vaccine (1 of 2) 2004 DXA Bone Density (Females,Ag es 65 and older) 2019 Influenza Vaccine 04/05/2024 COVID-19 Vaccine ( - 2023-2 5 season) 2024 RSV Vaccine 60 years and old er and Patients (1 - 1-dose 75+ series) 2029 Hepatitis B Vaccines Aged Out No long er eligible based on patient's age to complete this topic Insurance MEDICARE PART A & B
== END 2025-01-01 11:50 | disposition home or self-care (01) ==
LOC: HO.HKAS 11:04
PROVIDERS: PCP Hospitalist; Visit Provider Internal Medicine Nephrology
DX: N18.31 Chronic kidney disease, stage 3a (principal); I10 Essential (primary) hypertension
CPT/HCPCS: 99214

== ENCOUNTER → 2025-01-01 11:03 | Outpatient (BNVA) | payer MEDICARE, OTHER, SELFPAY | PROVIDERS: PCP Hospitalist; Visit Provider Internal Medicine Nephrology | DX: I12.9 Hypertensive chronic kidney disease with stage 1 through stage 4 chronic kidney disease, or unspecified chronic kidney disease (principal); N18.31 Chronic kidney disease, stage 3a | CPT/HCPCS: 99212 ==

== ENCOUNTER 2025-08-13 14:18 | Outpatient (AMB) | payer MEDICARE, OTHER, SELFPAY ==
--- NOTE | 2025-08-13 14:37 | HO.NEPHOV ---
Vital Signs 08/13/25 14:39 Height 5 ft 1 in Weight 142 lb 2 oz BMI 26.9 BP 120/78 Blood Pressure Location Lt brachial Position Sitting Intake Visit Reasons: Apr follow-up w/labs-Conf Carrier Blower Required: No Accompanied by: Self / Same As Patient Allergies No Known Allergies Allergy (Verified 08/13/25 14:39) HPI Comments Details: Samantha was seen in follow-up of her chronic kidney disease. She has rheumatoid arthritis and takes prednisone and nonsteroidal anti-inflammatories intermittently. She is hypertensive but her blood pressure has been at goal. She has high sodium diet. She has no orthostatic symptoms. When she was taking gabapentin, oxycodone and other NSAID's, she was having tremors which improved on cutting back on gabapentin. Lately she has been taking a lot of nonsteroidal anti-inflammatories. Her serum creatinine had improved to baseline . She has a new diagnosis of pulmonary fibrosis. She denies chest pain, shortness of breath, proximal nocturnal dyspnea, orthopnea, pedal edema or urinary symptoms. She feels well [facility] Medical History (Updated 12/01/23 @ 09:53 by Michael Jackson MD) SLE glomerulonephritis syndrome Osteoporosis Postherpetic neuralgia Osteoarthritis Obstructive sleep apnea Mood disorder Hyperlipidemia Migraine variant with headache Mass of left breast on mammogram Lumbar radiculopathy Hyperglycemia GERD (gastroesophageal reflux disease) Essential (primary) hypertension Chronic kidney disease Chronic constipation Cardiac murmur Bacterial pneumonia Surgical History History of hysterectomy History of shoulder surgery Family History Father Hypertension Social History Alcohol intake: never Patient Tobacco Use Status: Never used Tobacco Review of Systems Const All systems reviewed & are unremarkable except as noted in HPI and below Physical Exam Vital Signs: Last Vital Signs BP 120/78 08/13/25 14:39 BMI result Body Mass Index 26.9 Const General: comfortable and no acute distress Orientation/consciousness: patient oriented x3 HEENT Head: Yes normocephalic Mouth: Normal oral and palatal mucosa present Eyes EOM: EOMs intact bilaterally Neck Neck: Yes supple Resp Auscultation: clear to auscultation bilaterally Cardio Jugular venous distension: no JVD Rate: regular rate GI Palpation (GI): Soft to palpation Auscultation: normal bowel sounds General: Yes no CVA tenderness Back/Spine/Pelvis Back: no CVA tenderness Skin General skin exam: no rashes or lesions noted Neuro General: patient oriented x3 and moves all extremities Extrem General: Yes no pedal edema Assessment & Plan Assessment & Plan (1) CKD (chronic kidney disease) stage 3, GFR 30-59 ml/min: Code(s): N18.30 - Chronic kidney disease, stage 3 unspecified Category: Medical Qualifiers: Chronic kidney disease stage 3 subtype: stage 3a (GFR 45-59) Qualified Code(s): N18.31 - Chronic kidney disease, stage 3a (2) Hypertension: Code(s): I10 - Essential (primary) hypertension Category: Medical Qualifiers: Hypertension type: primary hypertension Qualified Code(s): I10 - Essential (primary) hypertension Plan Samantha has longstanding CKD stage 3 at baseline. Her renal function improved after holding lisinopril. She should maintain good hydration. She should cut back sodium in the diet. Her urine output is good. She does not need any renal biopsy at this moment in time. Blood work ordered for follow up. No medication changes made today. Further management is pending involving data. All questions answered Orders: Orders Complete Blood Count Auto Diff 6 Months I10 - Essential (primary) hypertension, N18.31 - Chronic kidney disease, stage 3a Parathyroid Hormone Intact 6 Months I10 - Essential (primary) hypertension, N18.31 - Chronic kidney disease, stage 3a Phosphorus 6 Months I10 - Essential (primary) hypertension, N18.31 - Chronic kidney disease, stage 3a Calcium 6 Months I10 - Essential (primary) hypertension, N18.31 - Chronic kidney disease, stage 3a Creatinine 6 Months I10 - Essential (primary) hypertension, N18.31 - Chronic kidney disease, stage 3a Protein Creatinine Ratio, Ur 6 Months I10 - Essential (primary) hypertension, N18.31 - Chronic kidney disease, stage 3a Vitamin D 25-OH Total 6 Months I10 - Essential (primary) hypertension, N18.31 - Chronic kidney disease, stage 3a Electrolytes 6 Months I10 - Essential (primary) hypertension, N18.31 - Chronic kidney disease, stage 3a Blood Urea Nitrogen 6 Months I10 - Essential (primary) hypertension, N18.31 - Chronic kidney disease, stage 3a Coding Level of Care Code Est Pt Level 4 (96820) Diagnoses Stage 3a chronic kidney disease N18.31 Chronic kidney disease stage 3 subtype: stage 3a (GFR 45-59) Primary hypertension I10 Hypertension type: primary hypertension
[2025-08-13 14:39] VITALS: BP 120/78; BMI 26.9
== END 2025-08-13 15:02 | disposition home or self-care (01) ==
LOC: HO.HKAS 14:19
PROVIDERS: PCP Hospitalist; Visit Provider Internal Medicine Nephrology
DX: N18.31 Chronic kidney disease, stage 3a (principal); I10 Essential (primary) hypertension
CPT/HCPCS: 99214

== ENCOUNTER → 2025-08-13 14:18 | Outpatient (BNVA) | payer MEDICARE, OTHER, SELFPAY | PROVIDERS: PCP Hospitalist; Visit Provider Internal Medicine Nephrology | DX: N18.31 Chronic kidney disease, stage 3a (principal); I12.9 Hypertensive chronic kidney disease with stage 1 through stage 4 chronic kidney disease, or unspecified chronic kidney disease; J84.10 Pulmonary fibrosis, unspecified | CPT/HCPCS: 99212 ==